=== PATIENT | male | born 1955 | race Caucasian/White ===

== ENCOUNTER 2018-01-01 07:25 | Observation (INO) | payer OTHER ==
[~2018-01-01] VITALS: Ht 177.8 cm; Wt 100.7 kg
--- NOTE | ~2018-01-01 | H ---
[address] [address] HISTORY AND PHYSICAL Name: LORENA GOULD Room: [address] Evette Chaudhary#: [id number] Admission: 01/01/18 Attend Phys: Michael Godoy MD, Discharge: 01/02/18 Date of : 51 Report #: [id number] THIS REPORT FOR: //name// Please refer to the History and Physical performed in the physician's office. By: [facility]5Medical Records Staff JASON /ANGELO
[~2018-01-01 07:25] MED LIST: ASPIR-TRIN325 MG PO; COREG6.25 MG PO; COZAAR 25 MG TA25 M1 PO; COZAAR 25 MG TA25 M2 PO; ETODOLAC 400 M400 M1 PO; ETODOLAC200 MG; FLOMAX0.4 MG PO; LANTUS100 UNIT/M SUBQ; LIPITOR 20 MG T20 M1 PO; METFORMIN HCL500 MG PO; MOBIC15 MG PO; NITROGLYCERIN0.4 MG SUBLING; PLAVIX 75 MG TA75 M1 PO; PRINIVIL5 MG PO; RANEXA500 MG PO; SIMVASTATIN40 MG PO; ZOCOR 10 MG TAB10 MG
[2018-01-01 08:05] LABS: HEMATOCRIT 45.3 % (42.0-52.0); HEMOGLOBIN 15.2 gm/dL (14.0-18.0); MCH 31.4 pg (26.0-34.0); MCHC 33.6 g/dL (28.0-37.0); MCV 93.4 fL (80.0-100.0); MPV 10.5 fl. (7.2-11.1); RBC 4.86 mil/uL (4.50-6.00); RDW-CV 13.2 % (10.5-14.5); WBC 5.9 thou/uL (4.0-11.0)
[2018-01-01 08:09] VITALS: BP 161/80
[2018-01-01 08:16] LABS: APTT 25.7 Seconds (25.0-31.3); INR 1.2; PROTIME 11.3 Seconds (9.20-11.50)
[2018-01-01 08:17] LABS: ANION GAP 6 mmol/L (7-16); BUN 18 mg/dL (7-18); CALCIUM 8.4 mg/dL (8.5-10.1); CHLORIDE 101 mmol/L (98-107); CO2 30 mmol/L (21-32); CREATININE 0.9 mg/dL (0.6-1.3); GLUCOSE 194 mg/dL (70-99); POTASSIUM 3.9 mmol/L (3.5-5.1); SODIUM 137 mmol/L (136-145)
[2018-01-01 08:21] LABS: ALBUMIN 3.8 g/dL (3.4-5.0); ALKALINE PHOSPHATASE 65 U/L (46-116); CHOLESTEROL 185 mg/dL (<200); HDL CHOLESTEROL 42 mg/dL (>40); LDL CHOLESTEROL 114 mg/dL (<100); SGOT 19 U/L (15-37); SGPT 22 U/L (30-65); TC:HDL 4.4 Ratio (Not establshd); TRIGLYCERIDE 147 mg/dL (<150); VLDL 29 mg/dL (<40)
[2018-01-01 08:23] LABS: SERUM ASSESSMENT Clear
[2018-01-01 11:30] VITALS: BP 165/85
--- NOTE | 2018-01-01 15:57 | EKG ---
[place] [address] ELECTROCARDIOGRAM REPORT Name: LORENA GOULD Room: [address] M.R.#: [id number] Admission: 01/01/18 Attend Phys: Michael Godoy MD, Discharge: Date of : 51 Report #: [id number] THIS REPORT FOR: //name// [facility] Test Date: 2018-01-01 Test Time: 08:41:26 Pat Name: LORENA GOULD Department: Room: [facility] Gender: M Special Events Manager: : 1955 Requested By: Michael Godoy Order Number: [id number] Elías MD: Michael Godoy Measurements Intervals [place] Rate: 55 P: 30 MD: 160 QRS: 26 QRSD: 92 T: 39 QT: 450 QTc: 431 Interpretive Statements Sinus rhythm Borderline low voltage, extremity leads Abnormal R-wave progression, early transition Baseline wander in lead(s) I,II,aVR,V5 Electronically Signed On 01-01-2018 15:56:59 CDT by Michael Godoy [email or web address] <ELECTRONICALLY SIGNED> By: Michael Godoy MD, [facility] 01/01/18 1556 0841 0841 Michael Godoy MD, [facility] /EPI
--- NOTE | 2018-01-01 15:58 | EKG ---
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
[2018-01-01 16:39] VITALS: BP 116/65
[2018-01-01 16:42] VITALS: BP 116/65
[2018-01-01 19:25] VITALS: BP 159/83
[2018-01-02] VITALS: BP 123/61
[2018-01-02 04:00] VITALS: BP 167/73
[2018-01-02 04:53] LABS: HEMATOCRIT 40.9 % (42.0-52.0); HEMOGLOBIN 13.9 gm/dL (14.0-18.0); MCH 31.7 pg (26.0-34.0); MCV 93.1 fL (80.0-100.0); MPV 12.1 fl. (7.2-11.1); RBC 4.39 mil/uL (4.50-6.00); RDW-CV 13.5 % (10.5-14.5); WBC 5.7 thou/uL (4.0-11.0)
[2018-01-02 05:19] LABS: ALBUMIN 3.2 g/dL (3.4-5.0); ALKALINE PHOSPHATASE 59 U/L (46-116); ANION GAP 4 mmol/L (7-16); BUN 15 mg/dL (7-18); CALCIUM 8.2 mg/dL (8.5-10.1); CHLORIDE 105 mmol/L (98-107); CO2 30 mmol/L (21-32); CREATININE 0.9 mg/dL (0.6-1.3); GLUCOSE 190 mg/dL (70-99); POTASSIUM 4.4 mmol/L (3.5-5.1); SGOT 13 U/L (15-37); SGPT 18 U/L (30-65); SODIUM 139 mmol/L (136-145); TOTAL BILIRUBIN 0.7 mg/dL (<0.1-1.0); TOTAL PROTEIN 6.6 g/dL (6.4-8.2); TROPONIN-I LEVEL <0.06 ng/mL (<0.06)
[2018-01-02 10:00] VITALS: BP 116/65
[2018-01-02] MEDS ORDERED: PRASUGREL HCL10 MG PO (10:47)
[2018-01-02 10:48] VITALS: BP 116/65
[2018-01-02] MEDS ORDERED: ASPIR 8181 MG PO (11:07)
--- NOTE | 2018-01-02 14:45 | EKG ---
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1955 Requested By: Michael Godoy Order Number: [id number] Elías MD: Michael Godoy Measurements Intervals [place] Rate: 52 P: 26 AL: 165 QRS: 20 QRSD: 95 T: 42 QT: 473 QTc: 440 Interpretive Statements Sinus rhythm Borderline low voltage, extremity leads Abnormal R-wave progression, early transition Baseline wander in lead(s) II,III,aVR,aVF Electronically Signed On 01-02-2018 14:44:48 CDT by Michael Godoy [email or web address] <ELECTRONICALLY SIGNED> By: Michael Godoy MD, [facility] 01/02/18 1444 0835 0835 Michael Godoy MD, [facility] /EPI
--- NOTE | 2018-01-02 15:37 | D ---
[address] [address] DISCHARGE SUMMARY Name: LORENA GOULD Room: [address] Evette Chaudhary#: [id number] Admission: 01/01/18 Attend Phys: Michael Godoy MD, Discharge: 01/02/18 Date of : 51 Report #: [id number] THIS REPORT FOR: //name// CC: Aiden Godoy DATE OF SERVICE: 01/02/2018 FINAL DISCHARGE DIAGNOSES: 1. Abnormal nuclear stress test. 2. Angina. 3. Coronary artery disease. 4. Status post percutaneous coronary intervention to the left anterior descending and circumflex on 01/01/2018. 5. Hypertension. 6. Type 2 diabetes. 7. Hyperlipoproteinemia. 8. Psoriasis. PROCEDURES: On01/02/2018 - left heart catheterization, left ventriculography, selective coronary arteriography and percutaneous coronary intervention with angioplasty of the mid circumflex and third marginal branch, with stenting of the proximal posterior descending branch and stenting of the mid and distal LAD. HOSPITAL COURSE: The patient is a very pleasant 62-year-old male with known coronary artery disease and prior LAD stenting. Approximately 3-4 weeks ago, he had a protracted episode of chest pressure with radiation through to the back. This lasted for over greater than 1 hour. Since then, he has noted some dyspnea and vague discomfort. Stress test revealed an inferior scar with kristin-infarction ischemia. He has underlying hypertension, diabetes and hyperlipidemia. In this context, I performed cardiac catheterization on 01/01/2018. That study demonstrated 75% mid circumflex stenosis with total distal occlusion with 90% stenosis in the takeoff of the third marginal branch and 90% stenosis of the takeoff of the posterior descending branch. He had 80% mid LAD stenosis with 90% distal LAD narrowing. I performed angioplasty on the mid circumflex and the ostium of the third marginal branch, with stenting of the proximal portion of the posterior descending branch with 0% residual narrowing at that site. I stented the mid LAD with 2 Integrity Oleg Medtronic stents and the distal LAD with a single 2.0 x 12 mm Integrity Oleg drug-eluting stent with 0% residual narrowing at both sites following stent deployment. The patient did well post-procedurally. There was no hematoma at the right femoral site. He ambulated in [place] [address] DISCHARGE SUMMARY Name: LORENA GOULD [address]#: [id number] Admission: 01/01/18 Attend Phys: Michael Godoy MD, Discharge: 01/02/18 Date of : 51 Report #: [id number] Laboratory on 01/02/2018 revealed a sodium 139, potassium 4.4, BUN 15 and creatinine 0.9. Hemoglobin 13.9, white blood cell count 5700 with 92,000 platelets. Troponin was less than 0.06. DISCHARGE MEDICATIONS: He was discharged to home on the following medications: Aspirin 81 mg daily; carvedilol 6.25 mg b.i.d.; Lantus insulin 50 units subcutaneous at bedtime, to be resumed on 01/04/2018; losartan 25 mg daily; metformin 500 mg b.i.d., to be resumed on 01/04/2018; prasugrel 10 mg daily with a 60-mg kristin-procedural dose; tamsulosin 0.4 mg daily and p.r.n. sublingual nitroglycerin. FOLLOWUP: He is to return to see us in the office this next week for followup after multi-vessel intervention as noted above. Thus, the patient is discharged to home in stable condition on the aforementioned medications with followup as described above. <ELECTRONICALLY SIGNED> By: Michael Godoy MD, [facility] 01/02/18 1537 0904 [id number] Godoy MD, FAC /nt
--- NOTE | 2018-01-03 10:48 | CARD ---
[address] [address] CARDIAC CATH REPORT Name: LORENA GOULD Room: [address] Evette Chaudhary#: [id number] Admission: 01/01/18 Attend Phys: Michael Godoy MD, Discharge: 01/02/18 Date of : 51 Report #: [id number] THIS REPORT FOR: //name// APPROVED REPORT Study performed: 01/01/2018 07:57:25 Patient Details Patient Status: Out-Patient Room #: The patient is a 62 year-old male Event Personnel Michael Godoy Window Glazier, Brooke Platt RN Assembler, Jelena Francis RTR Monitor, Calvin Hernandez Scrub Procedures Performed Art Access - R femoral artery* Left Heart Cath w/or w/o Coronaries LHC PTCA Addl Branch OM 3 PCIADDL PTCA Addl Branch CIRC PCIADDL CHU Place w/wo Plasty Single LAD CHU Place w/wo Plasty Single LAD CHU Place w/wo Plasty Single CIRC Indication Unstable angina , Positive stress test Risk Factors Hypercholesterolemia, Hypertension, Diabetes Previous Procedures/Diagnoses Previous PCI Admission/Lab Medications/Medications given during procedure Aspirin, Platelet Aff. Inhib., Angiomax IV 15 ml, Angiomax Drip IV 735 ml per hr, Aspirin PO 162 mg, Effient PO 60 mg Procedure Narrative The patient was brought electively to the Cardiac Catheterization Laboratory and was prepped and draped in a sterile manner. The right femoral was infiltrated with 2% Lidocaine subcutaneous anesthesia. A [place] 6 FR sheath was inserted into the right femoral artery. Coronary angiography was performed using coronary diagnostic catheters. The right coronary system was accessed and visualized with a Diagnostic 6Fr JR4 catheter. The left coronary system was accessed and visualized with a Diagnostic 6Fr JL4 catheter. The left ventricle was accessed and visualized with a Diagnostic 6Fr angled pigtail catheter. Left ventricular/Aortic [place] [address] CARDIAC CATH REPORT Name: LORENA GOULD Room: [address]#: [id number] Admission: 01/01/18 Attend Phys: Michael Godoy MD, Discharge: 01/02/18 Date of : 51 Report #: [id number] catheter pullback. Pre-demployment femoral angiogram was performed . Closure device was deployed with a Fr Angioseal STS 6Fr. Hemostasis was obtained with manual pressure following sheath removal without any complications. The patient tolerated the procedure well and there were no complications associated with the procedure. There was no hematoma. Intraoperative Conscious Sedation Fentanyl 50 mcg Versed 2 mg Fluoro Time: 26.2 minutes Dose: DAP 666704 cGycm2 4010.78 mGy Contrast Type and Amount: Visipaque 615 ml Coronary Angiography The patient's coronary anatomy is left dominant. Diagnostic Cath Left Main 0% narrowing LAD 30% proximal narrowing of 80% mid vessel stenosis and 90% distal LAD stenosis Circumflex Dominant vessel with 80% mid vessel narrowing and 100% distal occlusion; there was 90% stenosis at the takeoff of the posterior descending branch with 60% ostial second marginal and 90% ostial third marginal narrowings Right Coronary Small nondominant vessel with 60% mid vessel narrowing and 90% distal stenosis Left Ventriculography The left ventricle is normal in size with normal contractility. The left ventricular ejection fraction is estimated to be 60%. Left ventricular wall motion abnormalities are present. There is no mitral insufficiency. There is focal mid inferior akinesis Hemodynamics The aortic pressure is 143/62 mmHg with a mean of 86 mmHg. The left ventricular pressure is 138/3 mmHg with a mean of mmHg. The left ventricular end diastolic pressure is 10 mmHg. PCI Technique Lesion Percutaneous coronary intervention was performed on the third obtuse marginal branch segment. The lesion stenosis prior to intervention was 90% with PIYUSH 3 flow. A 6F XB LAD 3.5 Guide Catheter was used to engage the ostium. A ProwaterFlex 180CM Interventional Guidewire was used [place] [address] CARDIAC CATH REPORT Name: LORENA GOULD Room: [address] Jet#: [id number] Admission: 01/01/18 Attend Phys: Michael Godoy MD, Discharge: 01/02/18 Date of : 51 Report #: [id number] BALLOON DILATION A Balloon catheter Mini Trek RX 1.5 X 12 was inserted and inflated up to 12.00atm for 9seconds. Additional Inflation: 14.00atm for 9seconds. Additional Inflation: 14.00atm for 9seconds. Final angiography reveals 10 % stenosis with PIYUSH 3 flow. PCI Technique Lesion 2 Percutaneous Coronary Intervention was performed on the mid circumflex artery segment. The lesion stenosis prior to intervention was 80% with PIYUSH 3 flow. A 6F XB LAD 3.5 Guide Catheter was used to engage the ostium. A ProwaterFlex 180CM Interventional Guidewire was used to cross the lesion. Balloon Dilation A Balloon catheter NC Trek RX 2.75 X 12 was inserted and inflated up to 16.00atm for 16seconds. Additional Inflation: 17.00atm for 10seconds. Additional Inflation: 16.00atm for 8seconds. Final angiography reveals 20 % stenosis with PIYUSH 3 flow. PCI Technique Lesion 3 Percutaneous coronary intervention was performed on the proximal posterior descending branch. A 6F XB LAD 3.5 Guide Catheter was used to engage the ostium. A ProwaterFlex 180CM Interventional Guidewire was used to cross the lesion. Balloon Dilation A Balloon catheter Xience Alpine RX 2.25X08 was inserted and inflated up to 10.00atm for 22seconds. Additional Inflation: 12.00atm for 11seconds. Stent Deployment A drug-eluting stent Xience Alpine RX 2.25X08 was inserted and inflated up to 10.00atm for 8seconds. Additional Inflation: 12.00atm for 5seconds. Additional Inflation: 12.00atm for 8seconds. Final angiography reveals 0 % stenosis with PIYUSH 3 flow. PCI Technique Lesion 4 Percutaneous Coronary Intervention was performed on the distal left anterior descending artery segment. A 6F XB LAD 3.5 Guide Catheter was used to engage the ostium. A ProwaterFlex 180CM Interventional Guidewire was used to cross the lesion. Balloon Dilation [address] [address] CARDIAC CATH REPORT Name: LORENA GOULD Room: [address] Evette HerreraRandi#: [id number] Admission: 01/01/18 Attend Phys: Michael Godoy MD, Discharge: 01/02/18 Date of : 51 Report #: [id number] A Balloon catheter Mini Trek RX 2.0 X 12 was inserted and inflated up to 8.00atm for 7seconds. Additional Inflation: 8.00atm for 8seconds. Additional Inflation: 10.00atm for 7seconds. Stent Deployment A stent Oleg RX Stent 2.0X12mm was inserted and inflated up to 8.00atm for 8seconds. Additional Inflation: 10.00atm for 5seconds. Final angiography reveals 10 % stenosis with PIYUSH 3 flow. PCI Technique Lesion 5 Percutaneous Coronary Intervention was performed on the mid left anterior descending artery segment. The lesion stenosis prior to intervention was 80% with PIYUSH 3 flow. A 6F XB LAD 3.5 Guide Catheter was used to engage the ostium. A ProwaterFlex 180CM Interventional Guidewire was used to cross the lesion. Stent Deployment A stent [place] RX Stent 2.0X15mm,2.5x12 oleg was inserted and inflated up to 14.00atm for 9seconds. Additional Inflation: 17.00atm for 10seconds. Additional Inflation: 17.00atm for 8seconds. Final angiography reveals 0 % stenosis with PIYUSH 3 flow. PCI Technique Lesion Percutaneous coronary intervention was performed on the mid left anterior descending artery segment. A 6F XB LAD 3.5 Guide Catheter was used to engage the ostium. A ProwaterFlex 180CM Interventional Guidewire was used to cross the lesion. STENT DEPLOYMENT A stent Oleg RX Stent 2.5X12mm was inserted and inflated up to 10:00atm for 8seconds. Additional Inflation: 12:00atm for 7seconds. POST STENT DEPLOYMENT BALLOON DILATION A Balloon catheter NC Trek RX 2.25x12 was inserted and inflated up to 16:00atm for 9seconds. Additional Inflation: 20:00atm for 9seconds. Additional Inflation: 15:00atm for 7seconds. Conclusion #1 significant multivessel coronary artery disease characterized by the following: A 30% proximal with 80% mid and 90% [place] [address] CARDIAC CATH REPORT Name: LORENA GOULD Room: [address] Evette Chaudhary#: [id number] Admission: 01/01/18 Attend Phys: Michael Godoy MD, Discharge: 01/02/18 Date of : 51 Report #: [id number] B dominant circumflex with 80% mid vessel stenosis and 100% distal occlusion; there was 90% stenosis of the ostium of the posterior descending branch with 60% ostial second marginal and 90% ostial third marginal stenosis C nondominant right coronary artery with 60% mid and 90% distal narrowing #2 normal left-sided hemodynamics study #3 normal global left ventricular systolic function, estimate ejection fraction being 60% with focal mid inferior akinesis #4 successful percutaneous coronary angioplasty at the site of 90% ostial third marginal narrowing with 10% residual narrowing #5 successful percutaneous transluminal coronary angioplasty at the site of 80% mid circumflex stenosis with 20% residual narrowing #6 successful percutaneous coronary intervention with deployment of drug-eluting stent at site of 90% ostial posterior descending narrowing with 0% residual narrowing #7 successful percutaneous coronary intervention with deployment of drug-eluting stent at site of 90% distal LAD stenosis with 10% residual narrowing #8 successful percutaneous coronary intervention with deployment of sequential drug-eluting stents at the site of 80% mid LAD stenosis with 0% residual narrowing and PIYUSH-3 flow the distal vessel Recommendations Cardiac Risk Reduction Program Aggressive Medical Therapy Medications Administered Aspirin (any) Prasugrel Diagnostic Cath Approved by: Michael Godoy MD Date/Time: 01/03/2018 10:42:09 <ELECTRONICALLY SIGNED> By: Michael Godoy MD, [facility] 01/03/18 1048 1048 1048Michael Godoy MD, FAC /INF
== END 2018-01-02 11:45 | disposition home or self-care (01) ==
LOC: M.CL 07:25 → M.2W 11:14 → M.TBA-CV 11:14 → M.2W 11:36
PROVIDERS: ADMIT Internal Medicine
DX: I25.119 Atherosclerotic heart disease of native coronary artery with unspecified angina pectoris (principal); I10 Essential (primary) hypertension; E11.9 Type 2 diabetes mellitus without complications; E78.5 Hyperlipidemia, unspecified; L40.9 Psoriasis, unspecified; R94.39 Abnormal result of other cardiovascular function study

== ENCOUNTER 2018-02-19 07:52 | Observation (INO) | payer OTHER ==
[~2018-02-19] VITALS: Ht 177.8 cm; Wt 107.1 kg
[2018-02-19] VITALS (10 sets, daily range): BP systolic 105–173; BP diastolic 61–83
--- NOTE | ~2018-02-19 | H ---
[address] [address] HISTORY AND PHYSICAL Name: LORENA GOULD Room: [address] Evette Chaudhary#: [id number] Admission: 02/19/18 Attend Phys: Michael Gdooy MD, Discharge: 02/20/18 Date of : 51 Report #: [id number] THIS REPORT FOR: //name// Please refer to the History and Physical performed in the physician's office. By: [id number] Records Staff JASON /ANGELO
[~2018-02-19 07:52] MED LIST changes: +ASPIR 8181 MG PO; +PRASUGREL HCL10 MG PO
[2018-02-19 08:34] LABS: HEMATOCRIT 42.6 % (42.0-52.0); HEMOGLOBIN 14.5 gm/dL (14.0-18.0); MCH 31.4 pg (26.0-34.0); MCHC 34.1 g/dL (28.0-37.0); MPV 11.8 fl. (7.2-11.1); RBC 4.63 mil/uL (4.50-6.00); RDW-CV 13.2 % (10.5-14.5); WBC 5.4 thou/uL (4.0-11.0)
[2018-02-19 08:49] LABS: ANION GAP 5 mmol/L (7-16); BUN 22 mg/dL (7-18); CALCIUM 8.9 mg/dL (8.5-10.1); CHLORIDE 101 mmol/L (98-107); CO2 29 mmol/L (21-32); GLUCOSE 205 mg/dL (70-99); POTASSIUM 4.2 mmol/L (3.5-5.1); SODIUM 135 mmol/L (136-145)
[2018-02-19 08:54] LABS: ALBUMIN 3.8 g/dL (3.4-5.0); ALKALINE PHOSPHATASE 66 U/L (46-116); SGOT 25 U/L (15-37); SGPT 22 U/L (30-65); TOTAL BILIRUBIN 0.8 mg/dL (<0.1-1.0); TOTAL PROTEIN 8.1 g/dL (6.4-8.2)
[2018-02-19 09:04] LABS: APTT 25.6 Seconds (25.0-31.3); INR 1.1; PROTIME 11.1 Seconds (9.20-11.50)
[2018-02-19] MEDS ORDERED: NOVOLIN R100 UNIT/3 SUBQ (13:28)
[2018-02-19] MEDS ORDERED: ETODOLAC 400 M400 M1 PO (13:29)
--- NOTE | 2018-02-19 14:00 | EKG ---
[place] [address] ELECTROCARDIOGRAM REPORT Name: LORENA GOULD Room: [address] M.R.#: [id number] Admission: 02/19/18 Attend Phys: Michael Godoy MD, Discharge: Date of : 51 Report #: [id number] THIS REPORT FOR: //name// [facility] Test Date: 2018-02-19 Test Time: 09:19:11 Pat Name: LORENA CALDERONAREZ Department: Room: [facility] Gender: M E Learning Specialist: : 1955 Requested By: Michael Godoy Order Number: [id number] Reading MD: Michael Godoy Measurements Intervals [place] Rate: 60 P: 4 NM: 150 QRS: 17 QRSD: 95 T: 39 QT: 440 QTc: 440 Interpretive Statements Sinus rhythm Borderline low voltage, extremity leads Minimal ST elevation, anterior leads, normal variant Baseline wander in lead(s) V1,V2 Compared to ECG 01/02/2018 08:35:31 no significant change Electronically Signed On 02-19-2018 14:00:44 CDT by Michael Godoy [email or web address] <ELECTRONICALLY SIGNED> By: Michael Godoy MD, FACC 02/19/18 1400 8 8 Michael Godoy MD, FAC /EPI
--- NOTE | 2018-02-19 14:03 | EKG ---
[place] [address] ELECTROCARDIOGRAM REPORT Name: LORENA GOULD Room: [address] M.R.#: [id number] Admission: 02/19/18 Attend Phys: Michael Godoy MD, Discharge: Date of : 51 Report #: [id number] THIS REPORT FOR: //name// [facility] Test Date: 2018-02-19 Test Time: 13:38:20 Pat Name: LORENA GOULD Department: Room: [facility] Gender: M Finish Filer: : 1955 Requested By: Michael Godoy Order Number: [id number] Elías MD: Michael Godoy Measurements Intervals [place] Rate: 61 P: 63 [place]: 157 QRS: 31 QRSD: 96 T: 54 QT: 460 QTc: 464 Interpretive Statements Sinus rhythm Low voltage, extremity leads Abnormal R-wave progression, early transition Compared to ECG 01/02/2018 08:35:31 No significant changes Electronically Signed On 02-19-2018 14:03:32 CDT by Michael Godoy [email or web address] <ELECTRONICALLY SIGNED> By: Michael Godoy MD, FACC 02/19/18 1403 1338 1338 Michael Godoy MD, [facility] /EPI
[2018-02-19 17:03] LABS: CHOLESTEROL 178 mg/dL (<200); HDL CHOLESTEROL 46 mg/dL (>40); LDL CHOLESTEROL 113 mg/dL (<100); SERUM ASSESSMENT Clear; TC:HDL 3.9 Ratio (Not establshd); TRIGLYCERIDE 99 mg/dL (<150); VLDL 20 mg/dL (<40)
--- NOTE | 2018-02-19 18:44 | NUR ---
RECEVIED REPORT FROM ECHO IN AUTOMOBILE RENTAL REPRESENTATIVE. PT TRANSFERED TO TELE FLOOR AROUND 1155. PT ALERT AND ORIENTED X4, VSS, O2 SAT >90% ON RA. POST CATH VITALS COMPLETED CHARTED. ADMISSION HISTORY, ASSESSMENT, AND VITALS COMPLETED CHARTED. PT'S SON, BRANDY, ASSISTED WITH ADMISSION HISTORY. PT PRIMARILY SPEAKS [place]. RIGHT GROIN CATH SITE CDI, NO HEMATOMA, NON-TENDER. NELSON DC'D PER ORDER FROM DR SWAN. PT UP WITH STANDBY ASSIST TO THE BATHROOM THIS EVENING TO VOID AND HAVE BM. PT EATING AND DRINKING WITHOUT ISSUE. PT REPORTS DISCOMFORT IN PENIS FROM CATHETER - DENIES NEED FOR MEDICATION FOR PAIN. AT BEDSIDE, PLANS TO STAY THE NIGHT. COT PROVIDED. PT CURRENTLY RESTING IN BED WATCHING TV. CALL LIGHT IS WITHIN REACH. HOURLY ROUNDING PERFORMED. FALL PRECAUTIONS IN PLACE. WCTM FOR DURATION OF SHIFT.
[2018-02-20] VITALS: BP 147/72
--- NOTE | 2018-02-20 03:37 | NUR ---
ASSUMED PT CARE AT 1930. NURSING ASSESSMENT COMPLETED AT START OF SHIFT. PT VOICE NO CONCERNS THIS SHIFT, DENIES PAIN. SOLE CUTTER IN PLACE, TRACING SINUS RHYTHM. RIGHT GROIN DRESSING CLEAN,DRY, INTACT. HOURLY ROUNDING COMPLETED. CALL LIGHT WITHIN REACH.
[2018-02-20 04:00] VITALS: BP 124/65; BP 147/70
[2018-02-20 04:22] LABS: HEMATOCRIT 40.3 % (42.0-52.0); HEMOGLOBIN 13.6 gm/dL (14.0-18.0); MCH 31.4 pg (26.0-34.0); MCHC 33.7 g/dL (28.0-37.0); MCV 93.2 fL (80.0-100.0); RBC 4.32 mil/uL (4.50-6.00); RDW-CV 13.4 % (10.5-14.5)
[2018-02-20 04:47] LABS: ALBUMIN 3.4 g/dL (3.4-5.0); ALKALINE PHOSPHATASE 61 U/L (46-116); ANION GAP 5 mmol/L (7-16); BUN 14 mg/dL (7-18); CALCIUM 8.4 mg/dL (8.5-10.1); CHLORIDE 104 mmol/L (98-107); CO2 29 mmol/L (21-32); CREATININE 0.9 mg/dL (0.6-1.3); GLUCOSE 159 mg/dL (70-99); POTASSIUM 3.7 mmol/L (3.5-5.1); SGOT 15 U/L (15-37); SGPT 19 U/L (30-65); SODIUM 138 mmol/L (136-145); TOTAL BILIRUBIN 0.5 mg/dL (<0.1-1.0); TOTAL PROTEIN 6.8 g/dL (6.4-8.2); TROPONIN-I LEVEL <0.06 ng/mL (<0.06)
--- NOTE | 2018-02-20 07:45 | NUR ---
ASSUMED CARE OF PT ASSESSED AND DOCUMENTED. PT IS ON CARDIAC MONITER TRACING SR HR 75. PT IS A&O WITH NO C/O PAIN. HE IS ON ROOM AIR AND IS AFEBRILE. PT DRSG ON R GROIN REMAINS CLEAN DRY AND INTACT. BED IS IN LOW POSITION CALL LIGHT IS IN REACH. WM.
[2018-02-20 08:00] VITALS: BP 153/79
[2018-02-20 11:23] VITALS: BP 153/79
[2018-02-20 11:58] VITALS: BP 153/79
[2018-02-20 12:36] VITALS: BP 153/79
--- NOTE | 2018-02-20 12:50 | NUR ---
PT D/C'D TO HOME. IV AND CARDIAC MONITER D/C'D. EDUCATION GIVEN RE FOLLOW-UPS, MEDICATIONS, AND DRS ORDERS. ALL BELONGINGS PACKED UP AND LEFT WITH PT ACCOMPANIED BY STAFF AND PTS FAMILY.
--- NOTE | 2018-02-20 13:11 | CARD ---
[address] [address] CARDIAC CATH REPORT Name: LORENA GOULD Room: [address] Evette Chaudhary#: [id number] Admission: 02/19/18 Attend Phys: Michael Godoy MD, Discharge: 02/20/18 Date of : 51 Report #: [id number] THIS REPORT FOR: //name// APPROVED REPORT Study performed: 02/19/2018 09:07:31 Patient Details Patient Status: Out-Patient Room #: The patient is a 63 year-old male Event Personnel Michael Godoy Hired Help, Brooke Platt RN Elementary Education Teacher, Jelena Francis RTR Monitor, Calvin Hernandez Scrub Procedures Performed Art Access - R femoral artery* Left Heart Cath w/or w/o Coronaries LHC PTCA Single Vessel CIRC PCISINGLE PTCA Single Vessel OM PCISINGLE Hemostasis w/ Angioseal Indication Unstable angina Risk Factors Hypercholesterolemia, Hypertension, Diabetes Previous Procedures/Diagnoses Previous PCI Admission/Lab Medications/Medications given during procedure Aspirin, Platelet Aff. Inhib., Angiomax bolus and infusion Procedure Narrative The patient was brought electively to the Cardiac Catheterization Laboratory and was prepped and draped in a sterile manner. The right femoral was infiltrated with 2% Lidocaine subcutaneous anesthesia. A Hastings 6 FR sheath was inserted into the right femoral artery. Coronary angiography was performed using coronary diagnostic catheters. The right coronary system was accessed and visualized with a Diagnostic 6Fr JR 4 catheter. The left coronary system was accessed and visualized with a Diagnostic 6Fr JL4 catheter. The left ventricle was accessed and visualized with a Diagnostic 6Fr straight pightail catheter. Left ventricular/Aortic Valve gradient assessed via catheter pullback. Closure device was deployed with a Fr Angioseal STS 6Fr. The patient tolerated the procedure well [place] [address] CARDIAC CATH REPORT Name: LORENA GOULD [address] [id number] Admission: 02/19/18 Attend Phys: Michael Godoy MD, Discharge: 02/20/18 Date of : 51 Report #: [id number] complications associated with the procedure. There was no hematoma. Intraoperative Conscious Sedation Sedation start time: 09:56 Case end Time: 10:56 Fentanyl 50 mcg Versed 2 mg Fluoro Time: 20.3 minutes Dose: DAP [id number] cGycm2 2471 mGy Contrast Type and Amount: Visipaque 250 ml Diagnostic Cath Left Main 0% narrowing LAD 4% proximal LAD narrowing with widely patent mid and distal stents Circumflex Dominant vessel with 75% mid vessel narrowing and 80% stenosis of the takeoff of the third marginal branch with 100% distal circumflex occlusion Right Coronary Nondominant vessel with 40% mid vessel narrowing Left Ventriculography The left ventricle is normal in size with normal contractility. The left ventricular ejection fraction is estimated to be 60%. Left ventricular wall motion abnormalities are present. There is no mitral insufficiency. There is mild mid inferior hypokinesis noted Hemodynamics The aortic pressure is 151/52 mmHg with a mean of 76 mmHg. The left ventricular pressure is 132/-3 mmHg with a mean of mmHg. The left ventricular end diastolic pressure is 3 mmHg. There was no gradient across the aortic valve upon pullback. PCI Technique Lesion Anticoagulation was achieved with Angiomax. Percutaneous coronary intervention was performed on the third obtuse marginal branch segment. The lesion stenosis prior to intervention was 80% with PIYUSH 3 flow. A 6F XB LAD 3.5 Guide Catheter was used to engage the ostium. A BMW 190cm Interventional Guidewire was used to cross the lesion. BALLOON DILATION A Balloon catheter Mini Trek RX 1.5 X 12 was inserted and inflated up to 10.00atm for 11seconds. Additional Inflation: 12.00atm for 9seconds. Additional Inflation: 16.00atm for 11seconds. [place] [address] CARDIAC CATH REPORT Name: LORENA GOULD Room: [address] Evette Chaudhary#: [id number] Admission: 02/19/18 Attend Phys: Michael Godoy MD, Discharge: 02/20/18 Date of : 51 Report #: [id number] 2.0X8 balloon was inserted and inflated for 8:00 erica for 6 seoncds. 6:00 erica for 7 seconds. 8:00 erica for 16 seconds. 10 erica for 18 seconds. Balloon catheter inserted 1.5X12 Trek was inserted and inflated for 16 erica for 7 seconds. 16 erica for 13 seconds. 16 erica for 20 seconds. 16 erica for 17 seoncds. Final angiography reveals 20 % stenosis with PIYUSH 3 flow. PCI Technique Lesion 2 Percutaneous Coronary Intervention was performed on the mid circumflex artery segment. The lesion stenosis prior to intervention was 75% with PIYUSH 3 flow. A 6F XB LAD 3.5 Guide Catheter was used to engage the ostium. A BMW 190cm Interventional Guidewire was used to cross the lesion. Balloon Dilation A Balloon catheter NC Trek RX 2.75 X 12 was inserted and inflated up to 18.00atm for 15seconds. Additional Inflation: 20.00atm for 9seconds. Final angiography reveals 20 % stenosis with PIYUSH 3 flow. Conclusion #1 significant coronary artery disease characterized by the following: A 40% proximal LAD narrowing with widely patent mid and distal LAD stents B dominant circumflex with 75% mid vessel narrowing and total distal occlusion and 80% stenosis of the proximal third marginal branch C nondominant right coronary artery with 40% mid vessel narrowing #2 normal global left ventricular systolic function, estimate ejection fraction being 60% with mild inferior hypokinesis #3 mild systemic systolic hypertension with normal left ventricular end-diastolic pressure at rest #4 successful percutaneous transluminal coronary angioplasty at the sites of 75% mid circumflex and 80% proximal third marginal narrowing with 20% residual narrowing at both sites following final dilatation and PIUYSH-3 flow to the distal circulation [address] [address] CARDIAC CATH REPORT Name: LORENA GOULD Room: [address] Evette Chaudhary#: [id number] Admission: 02/19/18 Attend Phys: Michael Godoy MD, Discharge: 02/20/18 Date of : 51 Report #: [id number] Recommendations Cardiac Risk Reduction Program Aggressive Medical Therapy Medications Administered Aspirin (any) Prasugrel Diagnostic Cath Approved by: Michael Godoy MD Date/Time: 02/20/2018 13:09:40 <ELECTRONICALLY SIGNED> By: Michael Godoy MD, [facility] 02/20/18 1311 10 1311Michael Godoy MD, FACC /INF
--- NOTE | 2018-02-20 18:06 | EKG ---
[place] [address] ELECTROCARDIOGRAM REPORT Name: LORENA GOULD [address]#: [id number] Admission: 02/19/18 Attend Phys: Michael Godoy MD, Discharge: 02/20/18 Date of : 51 Report #: [id number] THIS REPORT FOR: //name// [facility] Test Date: 2018-02-20 Test Time: 04:00:58 Pat Name: LORENA GOULD Department: Room: [facility] Gender: M Sterile Supply Technician: RSHEDNIGHAT : 1955 Requested By: Michael Godoy Order Number: [id number] Reading MD: Josiah Solares Measurements Intervals [place] Rate: 57 P: 30 AL: 150 QRS: 21 QRSD: 99 T: 36 QT: 453 QTc: 441 Interpretive Statements Sinus rhythm Baseline wander in lead(s) II,III,aVL,aVF Compared to ECG 02/19/2018 13:38:20 No significant changes Electronically Signed On 02-20-2018 18:06:36 CDT by Josiah Solares [email or web address] <ELECTRONICALLY SIGNED> By: Josiah Solares MD, FACC 02/20/18 1806 0400 0400 Josiah Solares MD, [facility] /EPI
--- NOTE | 2018-02-21 11:03 | D ---
[address] [address] DISCHARGE SUMMARY Name: LORENA GOULD Room: [address] Evette Chaudhary#: [id number] Admission: 02/19/18 Attend Phys: Michael Goody MD, Discharge: 02/20/18 Date of : 51 Report #: [id number] THIS REPORT FOR: //name// CC: Aiden Godoy DATE OF SERVICE: 02/20/2018 FINAL DISCHARGE DIAGNOSES: 1. Unstable angina. 2. Recently abnormal stress test. 3. Status post prior percutaneous coronary intervention to the left anterior descending and circumflex with angioplasty of the mid circumflex and marginal branch on 02/19/2018. 4. Coronary artery disease. 5. Hypertension. 6. Type 2 diabetes. 7. Hyperlipoproteinemia. 8. Psoriasis. PROCEDURES: 02/19/2018 - left heart catheterization, selective coronary arteriography and angioplasty of the mid circumflex and third marginal branch. The patient is a very pleasant 63-year-old I[place]ian male with complex coronary artery disease and status post prior percutaneous coronary interventions. He recently underwent stenting of the LAD at multiple sites, the posterior descending branch of the right coronary artery with angioplasty of a marginal branch. He presented with recurrent angina and underwent recatheterization on 02/19/2018, which revealed widely patent LAD stents with 30%-40% proximal LAD narrowing. The stent in the posterior descending branch of the circumflex was widely patent and there was a 75% mid circumflex stenosis with 80%-90% stenosis at the origin of third marginal branch. I dilated both sites with 20% residual narrowing at both sites following final dilatation and PIYUSH 3 flow of the distal vessel. The troponin jey inconsequentially to 0.06. Laboratory on 02/19/2018 revealed a troponin of 0.06. Sodium 138, potassium 3.7, BUN 14, creatinine 0.9, hemoglobin 13.6, white blood cell count 6000 with 102,000 platelets. GFR was 85. He ambulated in the hallways without difficulty and there was good hemostasis at the right femoral site of catheterization. He was discharged to home in stable condition on aspirin 81 mg daily, carvedilol 6.25 mg b.i.d., etodolac 400 mg b.i.d., Lantus insulin 40 units subcutaneously at bedtime, regular insulin in varying dose schedule a.c., losartan 25 mg daily, metformin 500 mg b.i.d. to be resumed on 02/21/2018, prasugrel 10 mg daily, [place] [address] DISCHARGE SUMMARY Name: GOULDLORENA H Room: [address] Evette Chaudhary#: [id number] Admission: 02/19/18 Attend Phys: Michael Godoy MD, Discharge: 02/20/18 Date of : 51 Report #: [id number] tamsulosin 0.4 mg daily and p.r.n. sublingual nitroglycerin. I will plan to see the patient in the office in approximately 4 weeks for clinical followup. Thus, the patient is discharged to home in stable condition on the aforementioned medications with followup as described above. The patient discharged from room 209 on 02/20/2018. <ELECTRONICALLY SIGNED> By: Michael Godoy MD, FACC 02/21/18 1103 1031 1857Michael Godoy MD, FACC /nt
== END 2018-02-20 13:06 | disposition home or self-care (01) ==
LOC: M.CL 07:52 → M.TBA-CV 11:16 → M.2W 11:16
PROVIDERS: ADMIT Internal Medicine
DX: I25.110 Atherosclerotic heart disease of native coronary artery with unstable angina pectoris (principal); I10 Essential (primary) hypertension; E11.9 Type 2 diabetes mellitus without complications; E78.5 Hyperlipidemia, unspecified; L40.9 Psoriasis, unspecified

== ENCOUNTER 2019-03-11 08:56 | Observation (INO) | payer OTHER ==
[2019-03-11] VITALS (11 sets, daily range): BP systolic 127–155; BP diastolic 64–75
[~2019-03-11] VITALS: Ht 177.8 cm; Wt 111.6 kg
[~2019-03-11 08:56] MED LIST changes: +NOVOLIN R100 UNIT/3 SUBQ
[2019-03-11] MEDS ORDERED: LEVEMIR FL100 UNIT/2 SUBQ (09:12)
[2019-03-11] MEDS ORDERED: NOVOLOG FL100 UNIT/M SUBQ (09:13)
[2019-03-11] MEDS ORDERED: HUMIRA PEN40 MG/0.4 SUBQ (09:13)
[2019-03-11 09:30] LABS: ABSOLUTE BASOPHILS 0.1 thou/uL (0.0-0.2); ABSOLUTE EOSINOPHILS 0.2 thou/uL (0.0-0.7); ABSOLUTE LYMPHOCYTES 1.5 thou/uL (0.8-5.3); ABSOLUTE MONOCYTES 0.5 thou/uL (0.0-1.2); ABSOLUTE NEUTROPHILS 2.6 thou/uL (1.6-8.1); BASOPHILS 1.4 %; EOSINOPHILS 3.4 %; HEMATOCRIT 43.9 % (42.0-52.0); HEMOGLOBIN 14.8 gm/dL (14.0-18.0); LYMPHOCYTES 31.8 %; MCH 30.7 pg (26.0-34.0); MCHC 33.6 g/dL (28.0-37.0); MCV 91.4 fL (80.0-100.0); MONOCYTES 9.4 %; MPV 11.7 fl. (7.2-11.1); NUCLEATED RBCS 0 /100WBC; PLATELET COUNT* 124 thou/uL (150-400); RDW-CV 13.5 % (10.5-14.5); WBC 4.9 thou/uL (4.0-11.0)
--- NOTE | 2019-03-11 09:37 | NUR ---
WENT INTO ROOM TO GIVE PT ORDERED ASPIRIN AND DAUGHTER STATES PT AND SHE WOULD LIKE DR SWAN TO BE CONSULTED PRIOR TO ASPIRIN ADMINISTRATION. PROVIDER NOTIFIED.
[2019-03-11 09:40] LABS: APTT 25.9 Seconds (25.0-31.3); INR 1.1; PROTIME 11.4 Seconds (9.20-11.50)
[2019-03-11 10:05] LABS: CALCIUM 8.6 mg/dL (8.5-10.1); CREATININE 1.1 mg/dL (0.6-1.3); POTASSIUM 4.5 mmol/L (3.5-5.1)
[2019-03-11 10:19] LABS: ALBUMIN 3.7 g/dL (3.4-5.0); CK-MB MASS 2.2 ng/mL (<0.5-3.6); MAGNESIUM 1.8 mg/dL (1.8-2.4); TOTAL BILIRUBIN 0.7 mg/dL (<0.1-1.0); TOTAL PROTEIN 7.7 g/dL (6.4-8.2)
[2019-03-11 10:34] LABS: LARGE PLATELETS FEW; PLATELET ESTIMATE DECREASED
--- NOTE | 2019-03-11 13:58 | EKG ---
[place] [address] ELECTROCARDIOGRAM REPORT Name: LORENA GOULD Room: [address] [place] .R.#: [id number] Admission: 03/11/19 Attend Phys: Michael Godoy MD, Discharge: Date of : 51 Report #: [id number] THIS REPORT FOR: //name// [facility] ED Test Date: 2019-03-11 Test Time: 09:00:12 Pat Name: LORENA GOULD Department: Room: Gender: Acquisition Specialist: : 1955 Requested By: Ross Bentley Order Number: [id number] MD: Roldan Viera Measurements Intervals [place] Rate: 71 P: 80 RI: 169 QRS: 40 QRSD: 85 T: 139 QT: 388 QTc: 422 Interpretive Statements Sinus rhythm Possible left atrial enlargement Repol abnrm suggests ischemia, anterolateral Inferior Q waves noted Compared to ECG 02/20/2018 04:00:58 Early repolarization now present Possible ischemia now present Electronically Signed On 03-11-2019 13:58:49 HOLDER [employer] by Roldan Viera [email or web address] <ELECTRONICALLY SIGNED> By: Roldan Viera MD, FACC 03/11/19 1358 09 09 Roldan Viera MD, FAC /EPI
--- NOTE | 2019-03-11 14:24 | NUR ---
ADMIT S/P HEART CATH TO 209 PATIENT TO VIA BED TELEPHONE REPORT GIVEN PRIOR TO ARRIVAL FAMILY AT BEDSIDE VITAL SIGNS TAKEN AND STABLE AND PATIENT DENIES PAIN
--- NOTE | 2019-03-11 16:40 | EKG ---
[place] [address] ELECTROCARDIOGRAM REPORT Name: LORENA GOULD Room: [address] M.R.#: [id number] Admission: 03/11/19 Attend Phys: Michael Godoy MD, Discharge: Date of : 51 Report #: [id number] THIS REPORT FOR: //name// [facility] Test Date: 2019-03-11 Test Time: 14:27:26 Pat Name: LORENA GOULD Department: Room: [facility] Gender: M Tire Changer Aircraft: : 1955 Requested By: Michael Godoy Order Number: [id number] Elías MD: Roldan Viera Measurements Intervals [place] Rate: 51 P: 75 NV: 177 QRS: 38 QRSD: 80 T: 129 QT: 460 QTc: 424 Interpretive Statements Sinus rhythm Repol abnrm suggests ischemia, anterolateral Minimal ST elevation, anterior leads Compared to ECG 03/11/2019 09:00:12 ST (T wave) deviation now present Inferior Q waves no longer present Q waves no longer present Possible ischemia still present Electronically Signed On 03-11-2019 16:40:14 NATIONAL FACILITIES MANAGER by Roldan Viera [email or web address] <ELECTRONICALLY SIGNED> By: Roldan Viera MD, FACC 03/11/19 1640 1427 1427 Roldan Viera MD, FAC /EPI
--- NOTE | 2019-03-11 17:00 | H ---
[place] [address] HISTORY AND PHYSICAL Name: LORENA GOULD Room: [address] Evette Chaudhary#: [id number] Admission: 03/11/19 Attend Phys: Michael Godoy MD, Discharge: Date of : 51 Report #: [id number] THIS REPORT FOR: //name// CC: MEJIA Bentley Physician staff DATE OF SERVICE: 03/11/2019 The patient will be admitted on 03/11/2019. HISTORY OF PRESENT ILLNESS: The patient is a very pleasant 64-year-old Japanese male with complex coronary artery disease, status post prior myocardial infarction and prior stenting of the LAD and circumflex. 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 He has an episode essentially every day, which remits with rest and at times required sublingual nitrates. The frequency has increased over the last 1-2 weeks. The patient has underlying hypertension, diabetes and weight excess. MEDICATIONS: Include aspirin 81 mg daily, carvedilol 6.25 mg b.i.d., NovoLog insulin with varying doses subcutaneously 3 times a day, Levemir insulin 20 units subcutaneously daily, losartan 25 mg daily, metformin 500 mg b.i.d., p.r.n. sublingual nitroglycerin, omeprazole 40 mg daily and Flomax 0.4 mg daily. PAST MEDICAL HISTORY: Remarkable for diabetes, weight excess, hypertension, mixed hyperlipidemia. SOCIAL HISTORY: The patient is . He is a nonsmoker. REVIEW OF SYSTEMS: Remarkable for the following: CARDIAC: He describes episodes of chest pain compatible with angina, which have increased in frequency. GENERAL: There has been moderate chronic weight excess. PHYSICAL EXAMINATION: GENERAL: Demonstrates a mildly distressed middle-aged Japanese male. VITAL SIGNS: Blood pressure 140/70, pulse rate is 68, respirations are 18 per minute. NECK: Jugular venous pressure is normal. CHEST: Clear. CARDIAC: Reveals normal first and second heart sounds with a question of S4 gallop. ABDOMEN: Mildly obese. EXTREMITIES: Without edema with intact femoral, [place] [address] HISTORY AND PHYSICAL Name: LORENA GOULD Room: [address]#: [id number] Admission: 03/11/19 Attend Phys: Michael Godoy MD, Discharge: Date of : 51 Report #: [id number] EKG reveals anterolateral ST-T changes compatible with ischemia. IMPRESSION: 1. Unstable angina. 2. Coronary artery disease. 3. Status post prior myocardial infarction. 4. Status post prior stenting. 5. Type 2 diabetes. 6. Hypertension. 7. Weight excess. RECOMMENDATIONS: Given the aforementioned clinical scenario compatible with unstable angina, I would recommend proceeding with cardiac catheterization to document current coronary anatomy and prospects for subsequent therapeutic modification. Critical care time is 35 minutes from 10:40 to 11:15 on 03/11/2019. <ELECTRONICALLY SIGNED> By: Michael Godoy MD, FACC 03/11/19 1700 1119 1134Michael Godoy MD, FACC /nt
[2019-03-12] VITALS: BP 130/72
[2019-03-12 04:00] VITALS: BP 144/77
[2019-03-12 04:32] LABS: HEMATOCRIT 43.9 % (42.0-52.0); HEMOGLOBIN 14.8 gm/dL (14.0-18.0); MCH 30.6 pg (26.0-34.0); MCHC 33.7 g/dL (28.0-37.0); MCV 90.7 fL (80.0-100.0); MPV 11.1 fl. (7.2-11.1); RBC 4.84 mil/uL (4.50-6.00); RDW-CV 13.8 % (10.5-14.5); WBC 6.2 thou/uL (4.0-11.0)
[2019-03-12 04:50] LABS: ALBUMIN 3.3 g/dL (3.4-5.0); ALKALINE PHOSPHATASE 60 U/L (46-116); ANION GAP 7 mmol/L (7-16); BUN 16 mg/dL (7-18); CALCIUM 8.8 mg/dL (8.5-10.1); CHLORIDE 103 mmol/L (98-107); CHOLESTEROL 172 mg/dL (<200); CO2 29 mmol/L (21-32); CREATININE 0.9 mg/dL (0.6-1.3); GLUCOSE 139 mg/dL (70-99); HDL CHOLESTEROL 32 mg/dL (>40); LDL CHOLESTEROL 116 mg/dL (<100); POTASSIUM 3.9 mmol/L (3.5-5.1); SGOT 21 U/L (15-37); SGPT 23 U/L (30-65); SODIUM 139 mmol/L (136-145); TC:HDL 5.4 Ratio (Not establshd); TOTAL BILIRUBIN 0.7 mg/dL (<0.1-1.0); TOTAL PROTEIN 7.3 g/dL (6.4-8.2); TRIGLYCERIDE 123 mg/dL (<150); TROPONIN-I LEVEL 0.08 ng/mL (<0.06); VLDL 25 mg/dL (<40)
[2019-03-12 04:54] LABS: SERUM ASSESSMENT CLEAR
--- NOTE | 2019-03-12 06:30 | NUR ---
INITAL ASSESMENT COMPLETED AT 194. PT OFF BEDREST AT THAT TIME. NELSON CATHETR REMOVED AT THAT TIME. GROIN SITE SOFT, NO BLEEDING, BRUISING OR HEMATOMA. PT INSTRUCTED TO SPLINT GROIN BEFORE COUGHING OR BEARING DOWN. PT INSTRUCTED TO CALL NURSE IF SWELLING OR BLEEDING OCCUR. VITAL SIGNS WITHIN NORMAL LIMITS DURING NIGHT. CALL LIGHT IN REACH, PT USING APPROPRIATELY.
[2019-03-12 07:00] VITALS: BP 141/60
[2019-03-12 07:23] VITALS: BP 136/75
--- NOTE | 2019-03-12 09:18 | NUR ---
INITIAL ASSESSMENT COMPLETED CHARTED. VSS. TRACING SB ON MONITOR. PT DENIES PAIN, SOA, N/V/D. DRESSING TO RIGHT GROIN C/D/I. NO NEW CONCERNS. HOURLY ROUNDING FOR PT SAFETY. CLWR.
[2019-03-12] MEDS ORDERED: LIPITOR 20 MG T20 M1 PO (09:56)
[2019-03-12] MEDS ORDERED: EFFIENT10 MG PO (10:03)
--- NOTE | 2019-03-12 11:32 | CARD ---
[address] [address] CARDIAC CATH REPORT Name: LORENA GOULD Room: [address] Evette Chaudhary#: [id number] Admission: 03/11/19 Attend Phys: Michael Godoy MD, Discharge: 03/12/19 Date of : 51 Report #: [id number] THIS REPORT FOR: //name// APPROVED REPORT Study performed: 03/11/2019 11:15:09 Patient Details Patient Status: ED Room #: The patient is a 64 year-old male Event Personnel Michael Godoy Compensator Worker, Janessa Kendall RN, Meghna Gilbert RTR Monitor, Calvin Hernandez, Natasha Grijalva RTR Monitor Procedures Performed Art Access - R femoral artery Left Heart Cath w/or w/o Coronaries CHU w/Atherectomy Single LAD CHU Place w/wo Plasty Single CIRC CHU Place w/wo Plasty Single Left Main Hemostasis w/ Angioseal Indication Unstable angina Risk Factors Family History, Hypercholesterolemia, Hypertension, Diabetes Previous Procedures/Diagnoses Previous PCI Admission/Lab Medications/Medications given during procedure Angiomax bolus and infusion Procedure Narrative The patient was brought urgently to the Cardiac Catheterization Laboratory and was prepped and draped in a sterile manner. The right femoral was infiltrated with 2% Lidocaine subcutaneous anesthesia. A Ludlow 6 FR sheath was inserted into the right femoral artery. Coronary angiography was performed using coronary diagnostic catheters. The right coronary system was accessed and visualized with a Diagnostic catheter. The left coronary system was accessed and visualized with a Diagnostic catheter. The left ventricle was accessed and visualized with a Diagnostic catheter. Left ventricular/Aortic Valve gradient assessed [place] [address] CARDIAC CATH REPORT Name: LORENA GOULD Room: [address] Evette Chaudhary#: [id number] Admission: 03/11/19 Attend Phys: Michael Godoy MD, Discharge: 03/12/19 Date of : 51 Report #: [id number] Left ventriculogram was performed in WARREN projection. Pre-demployment femoral angiogram was performed . Closure device was deployed with a 6 Fr Angioseal. The patient tolerated the procedure well and there were no complications associated with the procedure. There was no hematoma. Intraoperative Conscious Sedation Fentanyl mcg Dose: 4629 mGy Contrast Type and Amount: Visipaque 630 ml Coronary Angiography The patient's coronary anatomy is left dominant. Diagnostic Cath Left Main 70% distal narrowing LAD 90% proximal stenosis with 80% tandem mid LAD in-stent restenotic lesions and 90% distal LAD narrowing Circumflex 80% proximal circumflex stenosis with total distal circumflex occlusion Right Coronary Small nondominant vessel with 80% proximal narrowing Left Ventriculography The left ventricle is normal in size with contractility. The left ventricular ejection fraction is estimated to be 40%. Left ventricular wall motion abnormalities are present. There is no mitral insufficiency. There is moderate diffuse hypokinesis of left ventricular wall motion Hemodynamics The aortic pressure is 140/70 mmHg with a mean of 82 mmHg. The left ventricular end diastolic pressure is 15 mmHg. There was no gradient across the aortic valve upon pullback. PCI Technique Lesion Anticoagulation was achieved with Angiomax. Percutaneous coronary intervention was performed on the distal left anterior descending artery segment. The lesion stenosis prior to intervention was 90% with PIYUSH 3 flow. A 6 Romansh XB LAD 3.5 Guide Catheter was used to engage the left ostium. A IG: ProwaterFlex 180CM Interventional Guidewire was used to cross the lesion. BALLOON DILATION A Balloon catheter NC Trek RX 2.0 X 12 was [place] [address] CARDIAC CATH REPORT Name: LORENA GOULD [address]: [address]#: [id number] Admission: 03/11/19 Attend Phys: Michael Godoy MD, Discharge: 03/12/19 Date of : 51 Report #: [id number] to 14atm for 15seconds. STENT DEPLOYMENT A drug-eluting stent Somerset RX Stent 2.0X15mm was inserted and inflated up to 12atm for 10seconds. Final angiography reveals 0 % stenosis with PIYUSH 3 flow. PCI Technique Lesion 2 Percutaneous Coronary Intervention was performed on the mid left anterior descending artery segment. The lesion stenosis prior to intervention was 80% with PIYUSH flow. Balloon Dilation A Balloon catheter AngioSculpt PTCA 2.0X10mm was inserted and inflated up to 12atm for 15seconds. Stent Deployment A drug-eluting stent Oleg RX Stent 2.33R67db was inserted and inflated up to 15atm for 15seconds. Final angiography reveals 0 % stenosis with PIYUSH 3 flow. PCI Technique Lesion 3 Percutaneous Coronary Intervention was performed on the proximal LAD. Balloon Dilation A Balloon catheter AngioSculpt PTCA 2.0X10mm was inserted and inflated up to 18atm for 15seconds. Stent Deployment A drug-eluting stent Somerset RX Stent 2.5X12mm was inserted and inflated up to 14atm for 15seconds. Final angiography reveals 0 % stenosis with PIYUSH 3 flow. PCI Technique Lesion 4 Percutaneous Coronary Intervention was performed on the proximal circumflex. Balloon Dilation A Balloon catheter Trek RX 2.5 X 8 was inserted and inflated up to 15atm for 10seconds[place] [address] CARDIAC CATH REPORT Name: LORENA GOULD Room: [address] Evette Chaudhary#: [id number] Admission: 03/11/19 Attend Phys: Michael Godoy MD, Discharge: 03/12/19 Date of : 51 Report #: [id number] A drug-eluting stent Oleg RX Stent 2.75X8mm was inserted and inflated up to 16atm for 10seconds. Final angiography reveals 0 % stenosis with PIYUSH 3 flow. PCI Technique Lesion 5 Percutaneous Coronary Intervention was performed on the distal left main coronary artery. The lesion stenosis prior to intervention was 70% with PIYUSH 3 flow. Balloon Dilation A Balloon catheter NC Trek RX 3.0 X 8 was inserted and inflated up to 16atm for 15seconds. Stent Deployment A drug-eluting stent Oleg RX Stent 3.0X12mm was inserted and inflated up to 15atm for 10seconds. Post Stent Deployment Balloon Dilation A Balloon catheter NC Trek RX 3.5 X 8 was inserted and inflated up to 14atm for 10seconds. Final angiography reveals 10 % stenosis with PIYUSH 3 flow. Comments This is a technically complex intervention by virtue of multivessel stenting and stenting of the unprotected left main coronary artery. Conclusion #1 severe multivessel coronary artery disease characterized by the following: A 70% distal left main coronary artery narrowing B 90% proximal and 80% tandem mid LAD stenosis and 90% distal LAD stenosis C 80% proximal circumflex stenoses with 100% distal occlusion B small nondominant right coronary artery with 80% proximal narrowing #2 moderate impairment in global LV function, estimate ejection fraction being 40% with moderate [place] [address] CARDIAC CATH REPORT Name: LORENA GOULD Room: [address] Evette Chaudhary#: [id number] Admission: 03/11/19 Attend Phys: Michael Godoy MD, Discharge: 03/12/19 Date of : 51 Report #: [id number] #3 mild elevation of left ventricular end-diastolic pressure at rest #4 successful percutaneous coronary intervention with atherectomy and stenting of the mid LAD stenting of the proximal and distal LAD with 0% residual narrowings at all 3 sites #5 successful percutaneous coronary intervention with deployment of drug-eluting stent at site of 80% proximal circumflex stenosis with 0% residual narrowing #6 successful percutaneous coronary intervention with deployment of a drug-eluting stent at site of 70% distal left main coronary stenosis with 10% residual narrowing and PIYUSH-3 flow to the LAD and circumflex Recommendations Cardiac Risk Reduction Program Aggressive Medical Therapy Medications Administered Aspirin (any) Prasugrel Diagnostic Cath Approved by: Michael Godoy MD Date/Time: 03/12/2019 11:29:54 <ELECTRONICALLY SIGNED> By: Michael Godoy MD, [facility] 03/12/19 1131 1131 1131Michael Godoy MD, FACC /INF
--- NOTE | 2019-03-12 15:51 | EKG ---
[place] [address] ELECTROCARDIOGRAM REPORT Name: LORENA GOULD Room: [address]#: [id number] Admission: 03/11/19 Attend Phys: Michael Godoy MD, Discharge: 03/12/19 Date of : 51 Report #: [id number] THIS REPORT FOR: //name// [facility] Test Date: 2019-03-12 Test Time: 08:35:17 Pat Name: LORENA GOULD Department: Room: [facility] Gender: M Computer Numeric Control Setter: : 1955 Requested By: Michael Godoy Order Number: [id number] Reading MD: Michael Godoy Measurements Intervals [place] Rate: 55 P: 61 SC: 178 QRS: 32 QRSD: 76 T: 124 QT: 435 QTc: 416 Interpretive Statements Sinus rhythm Abnormal T, consider ischemia, lateral leads Baseline wander in lead(s) I,III,aVL Compared to ECG 03/11/2019 14:27:26 T-wave abnormality now present Early repolarization no longer present Possible ischemia still present Electronically Signed On 03-12-2019 15:51:13 HARBOR PILOT by Michael Godoy [email or web address] <ELECTRONICALLY SIGNED> By: Michael Godoy MD, FACC 03/12/19 1551 0835 0835 Michael Godoy MD, FAC /EPI
--- NOTE | 2019-03-12 16:52 | D ---
[address] [address] DISCHARGE SUMMARY Name: LORENA GOULD Room: [address] Evette Chaudhary#: [id number] Admission: 03/11/19 Attend Phys: Michael Godoy MD, Discharge: 03/12/19 Date of : 51 Report #: [id number] THIS REPORT FOR: //name// CC: MEJIA Godoy Physician staff DATE OF SERVICE: 03/11/2019 FINAL DISCHARGE DIAGNOSES: 1. Unstable angina. 2. Coronary artery disease. 3. Status post percutaneous coronary intervention with stenting of the left main, atherectomy with stenting of the LAD and stenting of the circumflex. 4. Hypertension. 5. Hyperlipidemia. 6. Type 2 diabetes. 7. Moderate weight excess. PROCEDURES: 03/11/2019 -- left heart catheterization, left ventriculography, selective coronary arteriography, and percutaneous coronary intervention with atherectomy and stenting of the LAD, stenting of the left main into the LAD, and stenting of the circumflex. HISTORY AND HOSPITAL COURSE: The patient is a very pleasant 64-year-old Palestinian male with complex coronary artery disease, status post prior percutaneous coronary interventions approximately 1 year ago. He presented to the office with recurrent chest discomfort and presented to the ER yesterday with increasing episodes of chest discomfort with modest activity with a clinical pattern of unstable angina. He has underlying diabetes, hypertension, and hyperlipidemia. In this context, I performed cardiac catheterization on 03/11/2019, which revealed 70% distal left main coronary stenosis, 90% proximal left anterior descending narrowing with tandem 80% mid LAD in-stent restenosis and 80-90% distal LAD narrowing with 75-80% proximal circumflex stenosis. Right coronary was occluded chronically and is modest in size. Given this data, I performed complex percutaneous coronary intervention with atherectomy and stenting of the mid left anterior descending, deployment of a 3.0 x 12 mm Girard stent in the left main into the LAD, post-dilated to 3.5 mm into the proximal portion involving the left main with 0% residual narrowing and stenting of the proximal circumflex with 0% residual narrowing. The patient did well post-procedurally. His troponin rising inconsequentially to 0.08. He ambulated in the hallways without difficulty and there was good hemostasis at the right [place] [address] DISCHARGE SUMMARY Name: LORENA GOULD Room: [address] Evette Chaudhary#: [id number] Admission: 03/11/19 Attend Phys: Michael Godoy MD, Discharge: 03/12/19 Date of : 51 Report #: [id number] LABORATORY DATA: Lab revealed sodium 139, potassium 3.9, BUN 16, creatinine 0.9, and glucose 139. White blood cell count 6200, hemoglobin 14.8, hematocrit 43.9, and platelets 109,000. LDL 116, HDL 32, triglycerides 123, and total cholesterol 172. DISCHARGE MEDICATIONS: The patient was discharged to home in stable condition on 03/12/2019 on the following medications: Humira 40 mg subcutaneously every 2 weeks, aspirin 81 mg daily, carvedilol 6.25 mg b.i.d., etodolac 400 mg b.i.d., aspart insulin 100 units subcutaneously daily, Levemir insulin 40 units subcutaneously daily, losartan 25 mg daily, metformin 500 mg b.i.d. to be resumed on 03/14/2019, prasugrel 10 mg daily with a 60 mg loading dose given kristin-procedurally, and p.r.n. sublingual nitroglycerin. He is scheduled to return to see me in the office on 03/29/2019 at 1300 hours at [facility]. Therefore, the patient is discharged to home in stable condition on the aforementioned medications with followup as iterated above. <ELECTRONICALLY SIGNED> By: Michael Godoy MD, FACC 03/12/19 1652 0925 0946Michael Godoy MD, FACC /nt
== END 2019-03-12 10:52 | disposition home or self-care (01) ==
LOC: M.ERS 08:56 → M.TBA-CV 11:42 → M.2W 14:23
PROVIDERS: Family Medicine; ADMIT Internal Medicine
DX: I25.110 Atherosclerotic heart disease of native coronary artery with unstable angina pectoris (principal); I10 Essential (primary) hypertension; E78.5 Hyperlipidemia, unspecified; E11.9 Type 2 diabetes mellitus without complications; R63.5 Abnormal weight gain; Z68.35 Body mass index [BMI] 35.0-35.9, adult; Z79.82 Long term (current) use of aspirin; Z79.4 Long term (current) use of insulin; Z79.899 Other long term (current) drug therapy; Z87.891 Personal history of nicotine dependence; Z95.5 Presence of coronary angioplasty implant and graft

== ENCOUNTER 2019-08-16 10:25 | Observation (INO) | payer OTHER ==
[~2019-08-16] VITALS: Ht 152.4 cm; Wt 118.8 kg
[2019-08-16] VITALS (15 sets, daily range): BP systolic 126–164; BP diastolic 56–103
[~2019-08-16 10:25] MED LIST changes: +EFFIENT10 MG PO; +HUMIRA PEN40 MG/0.4 SUBQ; +LEVEMIR FL100 UNIT/2 SUBQ; +NOVOLOG FL100 UNIT/M SUBQ
[2019-08-16] MEDS ORDERED: TRULICITY0.75 MG/0. (10:36)
[2019-08-16] MEDS ORDERED: FAMOTIDINE 40 M40 M1 PO (10:37)
[2019-08-16] MEDS ORDERED: FLOMAX0.4 MG PO (10:37)
[2019-08-16 10:53] LABS: ABSOLUTE EOSINOPHILS 0.2 thou/uL (0.0-0.7); ABSOLUTE LYMPHOCYTES 1.7 thou/uL (0.8-5.3); ABSOLUTE MONOCYTES 0.5 thou/uL (0.0-1.2); ABSOLUTE NEUTROPHILS 2.9 thou/uL (1.6-8.1); BASOPHILS 0.3 %; EOSINOPHILS 3.9 %; HEMOGLOBIN 14.7 gm/dL (14.0-18.0); LYMPHOCYTES 32.1 %; MCH 31.4 pg (26.0-34.0); MCHC 34.3 g/dL (28.0-37.0); MCV 91.6 fL (80.0-100.0); MONOCYTES 9.6 %; MPV 10.8 fl. (7.2-11.1); NUCLEATED RBCS 0 /100WBC; PLATELET COUNT* 112 thou/uL (150-400); POLYS 54.1 %; RBC 4.69 mil/uL (4.50-6.00); RDW-CV 14.3 % (10.5-14.5); WBC 5.3 thou/uL (4.0-11.0)
[2019-08-16 11:04] LABS: APTT 21.9 Seconds (25.0-31.3); INR 1.1; PROTIME 10.9 Seconds (9.20-11.50)
[2019-08-16 11:17] LABS: CALCIUM 8.4 mg/dL (8.5-10.1); CREATININE 1.1 mg/dL (0.6-1.3); POTASSIUM 4.5 mmol/L (3.5-5.1)
[2019-08-16 11:28] LABS: ALBUMIN 3.8 g/dL (3.4-5.0); TOTAL BILIRUBIN 0.6 mg/dL (<0.1-1.0); TOTAL PROTEIN 7.9 g/dL (6.4-8.2)
--- NOTE | 2019-08-16 16:32 | EKG ---
[place] [address] ELECTROCARDIOGRAM REPORT Name: LORENA GOULD [place] Room: [address] M.R.#: [id number] Admission: 08/16/19 Attend Phys: Marlen Patel Discharge: Date of : 51 Date of Service: 08/16/19 1032 Report #: [id number] THIS REPORT FOR: //name// [facility] ED Test Date: 2019-08-16 Test Time: 10:32:22 Pat Name: LORENA GOULD Department: Room: [facility] Gender: M Biologist: [facility] : 1955 Requested By: Debi Mancini Order Number: [id number] MD: Michael Godoy Measurements Intervals [place] Rate: 66 P: 69 NM: 159 QRS: 22 QRSD: 83 T: 128 QT: 405 QTc: 425 Interpretive Statements Sinus rhythm Abnormal inferior Q waves Abnormal T, consider anterolateral ischemia Compared to ECG 03/12/2019 08:35:17 T-wave abnormality still present Possible ischemia still present Electronically Signed On 08-16-2019 16:30:24 CDT by Michael Godoy [email or web address] <ELECTRONICALLY SIGNED> By: Michael Godoy MD, FACC 08/16/19 1630 1032 1032 Michael Godoy MD, FAC /EPI
--- NOTE | 2019-08-16 16:37 | EKG ---
[place] [address] ELECTROCARDIOGRAM REPORT Name: LORENA GOULD Room: [address] M.R.#: [id number] Admission: 08/16/19 Attend Phys: Marlen Patel Discharge: Date of : 51 Date of Service: 08/16/19 1555 Report #: [id number] THIS REPORT FOR: //name// [facility] Test Date: 2019-08-16 Test Time: 15:55:40 Pat Name: LORENA GOULD Department: Room: [facility] Gender: M Commissioner Public [employer]: ARLET : 1955 Requested By: Michael Godoy Order Number: [id number] Reading MD: Michael Godoy Measurements Intervals [place] Rate: 58 P: 60 DC: 166 QRS: 17 QRSD: 84 T: 110 QT: 435 QTc: 428 Interpretive Statements Sinus rhythm Inferior infarct, old Lateral leads are also involved Compared to ECG 03/12/2019 08:35:17 Myocardial infarct finding now present T-wave abnormality no longer present Possible ischemia no longer present Electronically Signed On 08-16-2019 16:35:27 CDT by Michael Godoy [email or web address] <ELECTRONICALLY SIGNED> By: Michael Godoy MD, FACC 08/16/19 1635 1555 1555 Michael Godoy MD, FAC /EPI
--- NOTE | 2019-08-16 16:53 | CARD ---
[address] [address] CARDIAC CATH REPORT Name: LORENA GOULD Room: [address] Evette M.RRandi#: [id number] Admission: 08/16/19 Attend Phys: Michael Godoy MD, Discharge: Date of : 51 Report #: [id number] THIS REPORT FOR: //name// cc: FRANK - No family physician/PCP FRANK - No family physician/PCP ~ APPROVED REPORT Study performed: 08/16/2019 10:32:22 Patient Details Patient Status: ED Room #: 207 The patient is a 64 year-old male Event Personnel Michael Godoy Personnel Adviser, Janessa Kendall RN, Jony Burdick RN RN, Tonny Rodrigeuz RTR Scrub, Natasha Grijalva RTR Monitor Procedures Performed Art Access - R femoral artery, Left Heart Cath w/or w/o Coronaries LHC, CHU Place w/wo Plasty Single RCA, CHU Place w/wo Plasty Single Left Main , PTCA Single Vessel CIRC PCISINGLE, Hemostasis w/ Angioseal Indication Unstable angina Previous Procedures/Diagnoses Previous PCI Admission/Lab Medications/Medications given during procedure Oxygen Nasal cannula 2 l per min, Lidocaine Subcut 18 ml, Angiomax IV bolus 16.5 ml, Angiomax Drip IV 38.11 ml per hr, Nitroglycerin IC 400 mcg, Effient PO 30 mg, Aspirin PO 162 mg Procedure Narrative The patient was brought urgently to the Cardiac Catheterization Laboratory and was prepped and draped in a sterile manner. The right femoral groin area was infiltrated with 2% Lidocaine subcutaneous anesthesia. A 6F [place] sheath was inserted into the right femoral artery. Coronary angiography was performed using coronary diagnostic catheters. The right coronary system was accessed and visualized with a 6F JR4 catheter. The left coronary system was accessed and visualized with a 6F JL4 catheter. The left ventricle was accessed and visualized with a 6F Pig[place] catheter. Left ventricular/[place] [address] CARDIAC CATH REPORT Name: LORENA GOULD Room: [address] M.R.#: [id number] Admission: 08/16/19 Attend Phys: Michael Godoy MD, Discharge: Date of : 53 Report #: [id number] Valve gradient assessed via catheter pullback. Left ventriculogram was performed in [place]ARREN projection. Pre-demployment femoral angiogram was performed . Closure device was deployed with a 6 Fr Angioseal STS. The patient tolerated the procedure well and there were no complications associated with the procedure. There was no hematoma. Intraoperative Conscious Sedation Sedation start time: 12:32 Case end Time: 14:26 Fentanyl 25 mcg Versed 2 mg Fluoro Time: 26.1 minutes Dose: DAP 838177 cGycm2 4605 mGy Contrast Type and Amount: Visipaque 420 ml Coronary Angiography The patient's coronary anatomy is co- dominant. Diagnostic Cath Left Main 70% distal narrowing LAD Widely patent proximal and mid LAD stents with 40% mid vessel narrowing Circumflex 75% ostial proximal narrowing with a widely patent mid vessel stent and total distal circumflex occlusion Right Coronary Small codominant vessel with 90% proximal and 80% mid vessel stenosis Left Ventriculography The left ventricle is normal in size with normal contractility. The left ventricular ejection fraction is estimated to be 60%. Left ventricular wall motion abnormalities are not present. There is no mitral insufficiency. Hemodynamics The aortic pressure is 145/64 mmHg with a mean of 92 mmHg. The left ventricular pressure is 139/1 mmHg with a mean of mmHg. The left ventricular end diastolic pressure is 11 mmHg. There was no gradient across the aortic valve upon pullback. PCI Technique Lesion Anticoagulation was achieved with Angiomax. Patient was preloaded with Angiomax IV bolus 16.5 ml. Percutaneous coronary intervention was performed on the proximal right coronary artery. The lesion stenosis prior to intervention was 90% with PIYUSH 3 flow. A 6Fr JR 4.0 SH Guide Catheter was used to engage [place] [address] CARDIAC CATH REPORT Name: LORENA GOULD Room: [address] M.R.#: [id number] Admission: 08/16/19 Attend Phys: Michael Godoy MD, Discharge: Date of : 53 Report #: [id number] 180CM Interventional Guidewire was used to cross the lesion. BALLOON DILATION A Balloon catheter Mini Trek RX 2.0 X 12 was inserted and inflated up to 12.00atm for 13seconds. Additional Inflation: 15.00atm for 9seconds. STENT DEPLOYMENT A drug-eluting stent Oleg RX Stent 2.0X15mm was inserted and inflated up to 10.00atm for 9seconds. Additional Inflation: 12.00atm for 8seconds. POST STENT DEPLOYMENT BALLOON DILATION A Balloon catheter Mini Trek RX 2.0 X 12 was inserted and inflated up to 10.00atm for 10seconds. Additional Inflation: 10.00atm for 9seconds. A balloon catheter NC Trek 2.0 x 8 was inserted and inflated up to 20 erica for 6 seconds. Additional inflation 22 erica for7 seconds. Final angiography reveals 0 % stenosis with PIYUSH 3 flow. PCI Technique Lesion 2 Percutaneous Coronary Intervention was performed on the mid right coronary artery. Patient was preloaded with Angiomax IV bolus 16.5 ml. The lesion stenosis prior to intervention was 80% with PIYUSH 3 flow. A 6Fr JR 4.0 SH Guide Catheter was used to engage the right ostium. A ProwaterFlex 180CM Interventional Guidewire was used to cross the lesion. Stent Deployment A drug-eluting stent [place] RX Stent 2.0X18mm was inserted and inflated up to 10.00atm for 7seconds. Additional Inflation: 12.00atm for 7seconds. Additional Inflation: 14.00atm for 12seconds. Post Stent Deployment Balloon Dilation A Balloon catheter NC Trek RX 2.0 X 8 was inserted and inflated up to 18.00atm for 9seconds. Additional Inflation: 20.00atm for 8seconds. Final angiography reveals 10 % stenosis with PIYUSH 3 flow. PCI Technique Lesion 3 Percutaneous Coronary Intervention was performed on the Distal left main coronary artery. Patient was preloaded with Angiomax IV bolus 16.5 ml. The lesion stenosis prior to intervention was 70% with PIYUSH 3 flow. A 6F XB LAD 3.5 Guide Catheter was used to engage the left [facility] [address] [place] [address] CARDIAC CATH REPORT Name: LORENA GOULD Room: [address] Jet#: [id number] Admission: 08/16/19 Attend Phys: Michael Godoy MD, Discharge: Date of : 53 Report #: [id number] main ostium. A BMW 190cm and ProwaterFlex 180cm Interventional Guidewire was used to cross the lesion. Balloon Dilation A Balloon catheter Trek RX 2.5 X 12 was inserted and inflated up to 12.00atm for 22seconds. Additional Inflation: 15.00atm for 10seconds. A balloon catheter NC Trek 3.25 x 8 was inserted and inflated up to 14 erica for 7 seconds. Additional inflations 18 erica for 15 seconds; 20 erica for 7 seconds. Stent Deployment A drug-eluting stent Oleg RX Stent 3.5X12mm was inserted and inflated up to 12.00atm for 9seconds. Additional Inflation: 15.00atm for 10seconds. Additional Inflation: 16.00atm for 10seconds. Final angiography reveals 0 % stenosis with PIYUSH 3 flow. Comments Procedure was technically complex by virtue of the multivessel nature of the procedure and requirement for stenting of the unprotected distal left main coronary artery. PCI Technique Lesion 4 Percutaneous Coronary Intervention was performed on the ostial circumflex artery segment. Patient was preloaded with Angiomax IV bolus 16.5 ml. Percutaneous coronary intervention was performed on the proximal circumflex artery segment. The lesion stenosis prior to intervention was 75% with PIYUSH 3 flow. A 6F XB LAD 3.5 Guide Catheter was used to engage the left main ostium. A BMW 190cm Interventional Guidewire was used to cross the lesion. Balloon Dilation A Balloon catheter Trek RX 2.25 X 8 was inserted and inflated up to 15.00atm for 13seconds. Additional Inflation: 16.00atm for 7seconds. Final angiography reveals 20 % stenosis with PIYUSH 3 flow. Conclusion 1. Significant multivessel coronary artery disease characterized by the following: A 70% clefted distal left [place] [address] CARDIAC CATH REPORT Name: LORENA GOULD [address] [id number] Admission: 08/16/19 Attend Phys: Michael Godoy MD, Discharge: Date of : 53 Report #: [id number] B widely patent proximal and mid LAD stents with 40% mid LAD narrowing C codominant circumflex with 75% ostial proximal narrowing widely patent mid vessel stent and total distal occlusion D small codominant right coronary with 90% proximal and 80% mid vessel stenosis 2. Normal left ventricular systolic function, estimated ejection fraction being 60% 3. Normal left-sided hemodynamics study 4. Successful percutaneous coronary intervention with deployment of sequential drug-eluting stents at the sites of 90 and 80% proximal and mid right coronary stenosis with 0 and 10% residual narrowings and PIYUSH-3 flow to the distal vessel 5. Successful percutaneous coronary intervention with deployment of drug-eluting stent at the site of 70% clefted distal left main coronary stenosis with 0% residual narrowing and PIYUSH III flow to the distal vasculature 6. Successful percutaneous transluminal coronary angioplasty at the site of 75% ostial proximal circumflex narrowing with 20% residual narrowing and PIYUSH-3 flow to the distal vessel Recommendations Cardiac Risk Reduction Program Aggressive Medical Therapy Medications Administered Aspirin (any) Prasugrel Diagnostic Cath Approved by: Michael Godoy MD Date/Time: 08/16/2019 16:49:16 <ELECTRONICALLY SIGNED> By: Michael Godoy MD, FACC 08/16/191650 50 50Michael Godoy MD, FACC /INF
--- NOTE | 2019-08-16 16:54 | NUR ---
PT ADMITTED ON TELE FLOOR FROM ELEMENTARY EDUCATION TUTOR. REPORT RECEIVED FROM ELEMENTARY EDUCATION TUTOR NURSE. PT IS AOX4. VS TAKEN. VS TO BE TAKEN Q15 MINUTES PER PROTOCOL. PT ON RA. O2 SATURATION IS 95%. RIGHT GROIN SITE IS INTACT, DRESSING TRANSPARENT. NO BLEEDING, NO PAIN. PT INSTRUCTED TO STAY ON BEDREST UNTIL 2100. NELSON IN PLACE. FOOD PROVIDED. ACCUCHECH. PT WILL NEED INSULIN. WILL CONTACT FOR INSULIN ORDER. TRACING SR ON SPORTS MANAGER. PT IS NON-TURKISH SPEAKING. TRANSLATION SERVICE FROM DAUGHTER USED AT TIME OF ADMISSION. CALL LIGHT WITHIN REACH. IV FLUID INFUSING AT 100 PER HOUR. WILL CONTINUE TO MONITOR
[2019-08-17 00:05] VITALS: BP 145/65
[2019-08-17 04:09] VITALS: BP 159/68
--- NOTE | 2019-08-17 05:26 | NUR ---
PT A&O X4, VSS ON RA. MEDS GIVEN ORDERED. PT DENIED PAIN. DRESSING TO RT GROIN C/D/I. NELSON CATH D/GARCÍA. UP STANDBY TO THE BATHROOM. PT SLEEPING WELL THROUGH THE NIGHT. HOURLY ROUNDINGS COMPLETED. WILL CONTINUE TO MONITOR.
[2019-08-17 06:14] LABS: HEMATOCRIT 42.6 % (42.0-52.0); HEMOGLOBIN 14.5 gm/dL (14.0-18.0); MCHC 34.2 g/dL (28.0-37.0); MCV 90.8 fL (80.0-100.0); MPV 10.8 fl. (7.2-11.1); RBC 4.69 mil/uL (4.50-6.00); WBC 7.1 thou/uL (4.0-11.0)
[2019-08-17 06:30] LABS: ALBUMIN 3.4 g/dL (3.4-5.0); ALKALINE PHOSPHATASE 66 U/L (46-116); ANION GAP 5 mmol/L (7-16); BUN 14 mg/dL (7-18); CALCIUM 8.3 mg/dL (8.5-10.1); CHLORIDE 102 mmol/L (98-107); CHOLESTEROL 138 mg/dL (<200); CO2 32 mmol/L (21-32); CREATININE 0.9 mg/dL (0.6-1.3); GLUCOSE 108 mg/dL (70-99); HDL CHOLESTEROL 40 mg/dL (>40); LDL CHOLESTEROL 67 mg/dL (<100); POTASSIUM 3.7 mmol/L (3.5-5.1); SERUM ASSESSMENT Clear; SGOT 17 U/L (15-37); SGPT 24 U/L (30-65); SODIUM 139 mmol/L (136-145); TC:HDL 3.5 Ratio (Not establshd); TOTAL BILIRUBIN 0.7 mg/dL (<0.1-1.0); TOTAL PROTEIN 7.4 g/dL (6.4-8.2); TRIGLYCERIDE 157 mg/dL (<150); TROPONIN-I LEVEL <0.06 ng/mL (<0.06); VLDL 31 mg/dL (<40)
[2019-08-17 07:49] VITALS: BP 167/89
[2019-08-17 09:39] VITALS: BP 167/89
[2019-08-17 09:49] VITALS: BP 167/89
[2019-08-17 10:59] VITALS: BP 167/89
--- NOTE | 2019-08-17 11:04 | EKG ---
[place] [address] ELECTROCARDIOGRAM REPORT Name: LORENA GOULD Room: [address] M.R.#: [id number] Admission: 08/16/19 Attend Phys: Marlen Patel Discharge: Date of : 51 Date of Service: 08/17/19 0809 Report #: [id number] THIS REPORT FOR: //name// [facility] Test Date: 2019-08-17 Test Time: 08:09:39 Pat Name: LORENA GOULD Department: Room: [facility] Gender: M Supervisor Waterworks: : 1955 Requested By: Michael Godoy Order Number: [id number] Reading MD: Michael Godoy Measurements Intervals [place] Rate: 64 P: 54 NV: 159 QRS: 6 QRSD: 100 T: 134 QT: 415 QTc: 428 Interpretive Statements Sinus rhythm Inferior infarct, old anterolateral st-t changes, consider ischemia Compared to ECG 08/16/2019 15:55:40 No significant changes Electronically Signed On 08-17-2019 11:02:46 CDT by Michael Godoy [email or web address] <ELECTRONICALLY SIGNED> By: Michael Godoy MD, [facility] 08/17/19 1102 0809 0809 Michael Godoy MD, [facility] /EPI
--- NOTE | 2019-08-17 11:20 | NUR ---
ASSUMED PT CARE REPORT RECEIVED FROM NURSE PT IS AOX4. ON RA SR ON CARIDAC MONITOR. O2 SATURATION 100% RA. RIGHT GROIN SITE PATENT AND INTACT/ DENIES PAIN. DISCHARGE ORDERED. IV LINE REMOVED. HEART MONITOR RETRIEVED. DISCHARGE INSTRUCTIONS GIVEN TO PATIENT. DAUGHTER PICKED UP PT FROM ER. PT LEFT UNIT ON WHEELCHAIR ACCOMPANIED BY NURSE TECH. BELONGING BROUGHT ALONG
--- NOTE | 2019-08-18 16:55 | H ---
[place] [address] HISTORY AND PHYSICAL Name: LORENA GOULD Room: [address] Evette Chaudhary#: [id number] Admission: 08/16/19 Attend Phys: Michael Godoy MD, Discharge: 08/17/19 Date of : 51 Report #: [id number] THIS REPORT FOR: //name// cc: FRANK Park family physician/PCP FRANK Park family physician/PCP ~ THIS REPORT FOR: //name// CC: FRANK physician/PCP Michael Godoy DATE OF SERVICE: 08/16/2019 HISTORY OF PRESENT ILLNESS: The patient is a 64-year-old Italian male with complex coronary artery disease, status post multiple prior percutaneous coronary interventions, most recently to the distal left main and proximal mid LAD and mid circumflex 5 months ago. He had done well until approximately 1 month ago when he began to note a decrease in functional capacity. During the last week, he notes shortness of breath crossing from one room to another. He denies accompanying chest discomfort, but the dyspnea has progressed markedly and reflected an anginal equivalent in the past. He does have major risk factors for coronary artery disease including aggressive diabetes, hypertension, hyperlipidemia and weight excess. OUTPATIENT MEDICATIONS: Have included Humira, atorvastatin, carvedilol, Trulicity, Pepcid, hydrochlorothiazide, NovoLog insulin, Levemir insulin, losartan, metformin and sublingual nitroglycerin as well as prasugrel 10 mg daily. He has been compliant with his medical regimen. PAST MEDICAL HISTORY: Remarkable for the following: Hypertension, diabetes, arthritis and mixed hyperlipidemia as well as weight excess. SOCIAL HISTORY: He is a nonsmoker. He is . PHYSICAL EXAMINATION: GENERAL: Reveals a mildly distressed, overweight middle-aged Italian male. VITAL SIGNS: Blood pressure is 115/60, pulse rate is 68 and respirations are 18 per minute. NECK: Jugular venous pressure is normal. Carotids are 1+. CHEST: Clear. CARDIAC: Reveals normal first and second heart sounds with a question of an S4 gallop. ABDOMEN: Moderately obese. EXTREMITIES: Without edema with intact femoral, [place] [address] HISTORY AND PHYSICAL Name: LORENA GOULD [address]: [address] [id number] Admission: 08/16/19 Attend Phys: Michael Godoy MD, Discharge: 08/17/19 Date of : 51 Report #: [id number] IMPRESSION: 1. Unstable angina. 2. Coronary artery disease, status post multiple prior percutaneous coronary interventions including 5 months ago to the left main, mid left anterior descending and mid circumflex. 3. Type 2 diabetes. 4. Hypertension. 5. Hyperlipidemia. 6. Weight excess. RECOMMENDATIONS: Given the aforementioned clinical scenario, I would recommend urgent cardiac catheterization to define current coronary anatomy and prospects for subsequent therapeutic modification. This has been discussed with the patient and the family. Thirty-five minutes of critical care time from 10:40 to 11:15 on 08/16/2019. <ELECTRONICALLY SIGNED> By: Michael Godoy MD, [facility] 08/18/19 1655 1116 1159Michael Godoy MD, FAC /nt
--- NOTE | 2019-08-18 16:55 | D ---
[address] [address] DISCHARGE SUMMARY Name: LORENA GOULD Room: [address] Evette Chaudhary#: [id number] Admission: 08/16/19 Attend Phys: Michael Godoy MD, Discharge: 08/17/19 Date of : 51 Report #: [id number] THIS REPORT FOR: //name// cc: FRANK - Vivian family physician/PCP FRANK - Vivian family physician/PCP ~ THIS REPORT FOR: //name// CC: FRANK physician/PCP Michael Godoy DATE OF SERVICE: 08/17/2019 FINAL DISCHARGE DIAGNOSES: 1. Unstable angina. 2. Coronary artery disease. 3. Status post percutaneous coronary intervention to the left main, right coronary artery and proximal circumflex. 4. Hypertension. 5. Hyperlipidemia. 6. Type 2 diabetes. PROCEDURES: On 08/16/2019 -- left heart catheterization, left ventriculography, selective coronary arteriography and percutaneous coronary intervention with stenting of the distal left main, proximal and mid right coronary artery and angioplasty of the proximal circumflex. The patient is a very pleasant 64-year-old [place] male with a history of multiple prior percutaneous coronary interventions. During the preceding 3-4 weeks, he has noted an increase in dyspnea on exertion such as walking from one room to another brings him shortness of breath with mild chest discomfort. This was similar to his prior ischemic syndrome. He presented to the ER on 08/16/2019 with increasing dyspnea on exertion, felt to represent an anginal equivalent following an unstable pattern. In this context, I performed cardiac catheterization on 08/16/2019. That study revealed 70% cleft at distal left main coronary stenosis with widely patent proximal and mid LAD stents. There was 90% proximal and 80% tubular mid right coronary artery stenosis, this being small but nondominant vessel. There was 75% ostial circumflex narrowing with a widely patent mid circumflex and total distal circumflex occlusion as noted before. Given this data, I performed percutaneous coronary intervention, deploying one 3.5 x 12 mm [place] drug-eluting stent in the distal left main with 0% residual narrowing. I placed two drug-eluting stents in the proximal mid right coronary artery, 2.0 x 15 and 2.0 x 18, sequentially with 0 and 10% residual narrowings and PIYUSH 3 flow of the distal vessel. I performed angi[place] [address] DISCHARGE SUMMARY Name: LORENA GOULD Room: [address] [id number] Admission: 08/16/19 Attend Phys: Michael Godoy MD, Discharge: 08/17/19 Date of : 51 Report #: [id number] the circumflex with 20% residual narrowing following final dilatation and PIYUSH 3 flow of the distal vessel. The patient did well post-procedurally. There was no chest pain or undue dyspnea. He ambulated in the hallways without difficulty with good hemostasis at the right femoral site of catheterization. LABORATORY DATA: On 08/17/2019; revealed a sodium 139, potassium 3.7; BUN 14, down from 20; creatinine 0.9 down from 1.1; glucose 108 mg percent. Hemoglobin 14.5, white blood cell count 7100 and 108,000 platelets. Troponin was less than 0.06. MEDICATIONS: The patient was discharged to home on the following medications: Humira for rheumatoid arthritis 40 mg subcutaneously every 2 weeks, aspirin 81 mg daily, atorvastatin 40 mg daily, carvedilol 6.25 mg b.i.d., Trulicity 0.75 mg daily, famotidine 40 mg daily, NovoLog insulin 100 units subcutaneous daily p.r.n. for blood sugar, Levemir insulin 40 units subcutaneously daily, losartan 25 mg daily, metformin 500 mg b.i.d. to be resumed on 08/19/2019, prasugrel 10 mg daily with 30 mg kristin-procedural dose, and tamsulosin 0.4 mg daily. He also has p.r.n. sublingual nitroglycerin to be utilized if needed. I will plan to see the patient in the office in 1 week for followup with the timing to be called to the patient. Therefore, he is discharged to home in stable condition on the aforementioned medications with followup as iterated above. DISCHARGE TIME: 35 minutes; from 0905 to 0940 hours. <ELECTRONICALLY SIGNED> By: Michael Godoy MD, FACC 08/18/19 1655 0942 [id number] Godoy MD, FACC /nt
== END 2019-08-17 11:20 | disposition home or self-care (01) ==
LOC: M.CL 10:25 → M.ERS 10:25 → M.TBA-CV 11:53 → M.2W 11:53 → M.TBA-CV 15:06 → M.2W 15:40
PROVIDERS: Personal Emergency Response Attendant; ADMIT Internal Medicine
DX: I25.110 Atherosclerotic heart disease of native coronary artery with unstable angina pectoris (principal); E11.9 Type 2 diabetes mellitus without complications; I10 Essential (primary) hypertension; E78.5 Hyperlipidemia, unspecified

== ENCOUNTER 2020-06-28 10:19 | Observation (INO) | payer MEDICARE ==
[~2020-06-28] VITALS: Ht 177.8 cm; Wt 108.6 kg
[~2020-06-28 10:19] MED LIST changes: +FAMOTIDINE 40 M40 M1 PO; +TRULICITY0.75 MG/0.
[2020-06-28 10:25] VITALS: BP 135/66
[2020-06-28 11:06] LABS: ABSOLUTE EOSINOPHILS 0.1 thou/uL (0.0-0.7); ABSOLUTE LYMPHOCYTES 1.5 thou/uL (0.8-5.3); ABSOLUTE MONOCYTES 0.5 thou/uL (0.0-1.2); ABSOLUTE NEUTROPHILS 3.1 thou/uL (1.6-8.1); BASOPHILS 0.1 %; EOSINOPHILS 2.6 %; HEMATOCRIT 47.5 % (42.0-52.0); HEMOGLOBIN 15.9 gm/dL (14.0-18.0); LYMPHOCYTES 29.6 %; MCH 30.5 pg (26.0-34.0); MCHC 33.5 g/dL (28.0-37.0); MCV 90.8 fL (80.0-100.0); MONOCYTES 9.3 %; MPV 10.7 fl. (7.2-11.1); NUCLEATED RBCS 0 /100WBC; PLATELET COUNT* 114 thou/uL (150-400); POLYS 58.4 %; RBC 5.23 mil/uL (4.50-6.00); RDW-CV 14.6 % (10.5-14.5); WBC 5.2 thou/uL (4.0-11.0)
[2020-06-28 11:10] LABS: CALCIUM 8.9 mg/dL (8.5-10.1); POTASSIUM 4.2 mmol/L (3.5-5.1)
[2020-06-28 11:20] LABS: ALBUMIN 3.9 g/dL (3.4-5.0); MAGNESIUM 2.1 mg/dL (1.8-2.4); TOTAL BILIRUBIN 0.6 mg/dL (<0.1-1.0); TOTAL PROTEIN 8.1 g/dL (6.4-8.2)
[2020-06-28 11:29] LABS: APTT 23.1 Seconds (25.0-31.3); INR 1.1; PROTIME 11.2 Seconds (9.20-11.50)
[2020-06-28 12:00] VITALS: BP 127/68
--- NOTE | 2020-06-28 15:35 | EKG ---
[place] [address] ELECTROCARDIOGRAM REPORT Name: LORENA GOULD Room: [address] M.R.#: [id number] Admission: 06/28/20 Attend Phys: Marlen Patel Discharge: Date of : 51 Date of Service: 06/28/20 1023 Report #: [id number] THIS REPORT FOR: //name// [facility] ED Test Date: 2020-06-28 Test Time: 10:23:51 Pat Name: LORENA GOULD Department: Room: [facility] Gender: M Change Consultant: : 1955 Requested By: Michael Godoy Order Number: [id number] Reading MD: Michael Godoy Measurements Intervals [place] Rate: 66 P: 9 NV: 159 QRS: 17 QRSD: 87 T: 81 QT: 404 QTc: 424 Interpretive Statements Sinus rhythm Inferior infarct, old possible Compared to ECG 08/17/2019 08:09:39 ST (T wave) deviation no longer present Possible ischemia no longer present Myocardial infarct finding still present Electronically Signed On 06-28-2020 15:35:44 MUSIC JOURNALIST by Michael Godoy [email or web address] <ELECTRONICALLY SIGNED> By: Michael Godoy MD, FAC 06/28/20 1535 1023 1023 Michael Godoy MD, FAC /EPI
--- NOTE | 2020-06-28 15:37 | EKG ---
[place] [address] ELECTROCARDIOGRAM REPORT Name: LORENA GOULD [place] Room: [address] M.R.#: [id number] Admission: 06/28/20 Attend Phys: Marlen Patel Discharge: Date of : 51 Date of Service: 06/28/20 1510 Report #: [id number] THIS REPORT FOR: //name// [facility] Test Date: 2020-06-28 Test Time: 15:10:33 Pat Name: LORENA GOULD Department: Room: [facility] Gender: M Assembly Detailer: ARLET : 1955 Requested By: Salvador Rincon Order Number: [id number] MD: Michael Godoy Measurements Intervals [place] Rate: 55 P: 13 VA: 161 QRS: 12 QRSD: 92 T: 87 QT: 442 QTc: 423 Interpretive Statements Sinus rhythm Inferior infarct, old Compared to ECG 08/17/2019 08:09:39 ST (T wave) deviation no longer present Possible ischemia no longer present Myocardial infarct finding still present Electronically Signed On 06-28-2020 15:37:46 ROOM SERVER by Michael Godoy [email or web address] <ELECTRONICALLY SIGNED> By: Michael Godoy MD, FACC 06/28/20 1537 1510 1510 Michael Godoy MD, FAC /EPI
--- NOTE | 2020-06-28 16:20 | CARD ---
[address] [address] CARDIAC CATH REPORT Name: GOULDLORENA Room: [address] Evette M.Barbara#: [id number] Admission: 06/28/20 Attend Phys: Michael Godoy MD, Discharge: Date of : 51 Report #: [id number] THIS REPORT FOR: cc: Physician not on staff Physician not on staff ~ Michael Godoy MD [facility] APPROVED REPORT Study performed: 06/28/2020 11:57:50 Patient Details Patient Status: ED Room #: The patient is a 65 year-old male Event Personnel Meghna Gilbert RTR Scrub, Tonny Rodriguez RTR Monitor, Jony Burdick RN RN, Michael Godoy Stock Holder Procedures Performed Left Heart Cath w/or w/o Coronaries [id number] [facility] CHU w/Atherectomy Single LAD C[address] w/wo Plasty Addl BR PDA C9601 DESADDL Hemostasis w/ Angioseal Indication Unstable angina Risk Factors Family History, Hypercholesterolemia, Hypertension, Diabetes Previous Procedures/Diagnoses Previous PCI, Previous FL Admission/Lab Medications/Medications given during procedure Fentanyl IV 25 mcg, Midazolam (Versed) IV 1 mg, Lidocaine Subcut 20 ml, Angiomax IV 16.5 ml, Angiomax IV 38.39 ml per hr, Nitroglycerin IC 200 mcg, Effient PO 30 mg, Aspirin PO 162 mg Procedure Narrative The patient was brought urgently to the Cardiac Catheterization Laboratory and was prepped and draped in a sterile manner. The right femoral was infiltrated with 2% Lidocaine subcutaneous anesthesia. A [place] 6 FR sheath was inserted into the right femoral artery. Coronary angiography was performed using coronary diagnostic catheters. The right coronary system [place] [address] CARDIAC CATH REPORT Name: LORENA GOULD Room: [address]#: [id number] Admission: 06/28/20 Attend Phys: Michael Godoy MD, Discharge: Date of : 53 Report #: [id number] a Diagnostic JR4 6Fr catheter. The left coronary system was accessed and visualized with a Diagnostic JL4 6Fr catheter. The left ventricle was accessed and visualized with a Diagnostic Pigtail 6Fr catheter. Left ventricular/Aortic Valve gradient assessed via catheter pullback. Left ventriculogram was performed in WARREN projection. Pre-demployment femoral angiogram was performed . Closure device was deployed with a 6 Fr Angioseal. The patient tolerated the procedure well and there were no complications associated with the procedure. There was no hematoma. Intraoperative Conscious Sedation Sedation start time: 1232 Case end Time: 1354 Fentanyl 25 mcg Versed 1 mg Fluoro Time: 24.8 minutes Dose: DAP 635298 cGycm2 3453.16 mGy Contrast Type and Amount: Visipaque 390 ml Diagnostic Cath Left Main 20% distal narrowing LAD 70% focal proximal stenosis with 80% mid LAD in-stent stenosis and 90% distal LAD stenosis Circumflex Dominant vessel with 40% proximal narrowing and 90% stenosis at the origin of the prominent posterior descending branch. There was total occlusion of the distal circumflex of Right Coronary Small vessel with widely patent proximal and mid vessel stent; there were no significant stenoses noted Left Ventriculography The left ventricle is normal in size with normal contractility. The left ventricular ejection fraction is estimated to be 60%. Left ventricular wall motion abnormalities are present. There is no mitral insufficiency. Mid inferior hypo-akinesis is noted Hemodynamics The aortic pressure is 133/65 mmHg with a mean of 88 mmHg. The left ventricular pressure is 142/2 mmHg with a mean of mmHg. The left ventricular end diastolic pressure is 14 mmHg. There was no gradient across the aortic valve upon pullback. PCI Technique Lesion Anticoagulation was achieved with Angiomax. Percutaneous coronary intervention was performed on the mid left anterior descending artery segment. The lesion stenosis prior to intervention was 80% [place] [address] CARDIAC CATH REPORT Name: LORENA GOULD Room: [address] Evette M.R.#: [id number] Admission: 06/28/20 Attend Phys: Michael Godoy MD, Discharge: Date of : 53 Report #: [id number] 3 flow. A 6F XB LAD 3.5 Guide Catheter was used to engage the Left ostium. A IG: ProwaterFlex 180CM Interventional Guidewire was used to cross the lesion. BALLOON DILATION A Balloon catheter NC Trek RX 2.25x12 was inserted and inflated up to 18.00atm for 18seconds. Additional Inflation: 20.00atm for 10seconds. A Cutting Balloon Angiosculpt 2.5X 10mm was inserted and inflated up to 10.00 for 15 seconds. STENT DEPLOYMENT A drug-eluting stent Forrest RX Stent 2.12M62oj was inserted and inflated up to 16.00atm for 13seconds. Additional Inflation: 18.00atm for 12seconds. Additional Inflation: 20.00atm for 12seconds. Final angiography reveals 10 % stenosis with PIYUSH 3 flow. PCI Technique Lesion 2 Percutaneous Coronary Intervention was performed on the proximal left anterior descending artery segment. The lesion stenosis prior to intervention was 70% with PIYUSH 3 flow. A 6F XB LAD 3.5 Guide Catheter was used to engage the Left ostium. A IG: ProwaterFlex 180CM Interventional Guidewire was used to cross the lesion. Balloon Dilation A Balloon catheter NC Trek RX 2.75 X 8 was inserted and inflated up to 16.00atm for 14seconds. Additional Inflation: 12.00atm for 10seconds. A Cutting Balloon Angiosculpt 2.5X 10mm was inserted and inflated up 12.00 erica for 15 seconds. Additional Inflation: 15.00 erica for 20 seconds Stent Deployment A drug-eluting stent Oleg RX Stent 2.75X8mm was inserted and inflated up to 12.00atm for 11seconds. Additional Inflation: 15.00atm for 11seconds. Final angiography reveals 0 % stenosis with PIYUSH 3 flow. PCI Technique Lesion 3 Percutaneous Coronary Intervention was performed on the distal left anterior descending artery segment. The lesion stenosis prior to intervention was 90% with PIYUSH 3 flow. A 6F XB LAD 3.5 Guide Catheter was used to engage the Left ostium. A IG: ProwaterFlex 180CM Interventional Guidewire was used [place] [address] CARDIAC CATH REPORT Name: LORENA GOULD Room: [address]#: [id number] Admission: 06/28/20 Attend Phys: Michael Godoy MD, Discharge: Date of : 53 Report #: [id number] Stent Deployment A drug-eluting stent Forrest RX Stent 2.0X8mm was inserted and inflated up to 10.00atm for 15seconds. Additional Inflation: 12.00atm for 12seconds. Final angiography reveals 0 % stenosis with PIYUSH 3 flow. PCI Technique Lesion 4 Percutaneous Coronary Intervention was performed on the left posterolateral descending artery segment. The lesion stenosis prior to intervention was 90% with PIYUSH 3 flow. A 6F XB LAD 3.5 Guide Catheter was used to engage the Left ostium. A IG: BMW 190cm Interventional Guidewire was used to cross the lesion. Balloon Dilation A Balloon catheter Mini Trek RX 2.0 X 8 was inserted and inflated up to 10.00atm for 15seconds. Additional Inflation: 10.00atm for 12seconds. Additional Inflation: 14.00atm for 18seconds. Stent Deployment A drug-eluting stent Forrest RX Stent 2.0X8mm was inserted and inflated up to 10.00atm for 10seconds. Additional Inflation: 10.00atm for 10seconds. Final angiography reveals 0 % stenosis with PIYUSH 3 flow. Conclusion 1. Severe multivessel coronary artery disease characterized by the following: A 20% distal left main coronary narrowing B 70% very proximal LAD stenosis followed by 80% mid LAD in-stent restenosis and 90% distal LAD stenosis C dominant circumflex with 40% proximal narrowing and 90% narrowing of the proximal portion of the prominent posterior descending branch D modest size right coronary artery with widely patent proximal and mid vessel stents 2. Normal global LV function, estimated ejection fraction being 60% with mid inferior hypo- akinesis [address] [address] CARDIAC CATH REPORT Name: LORENA GOULD Room: [address]#: [id number] Admission: 06/28/20 Attend Phys: Michael Godoy MD, Discharge: Date of : 53 Report #: [id number] 3. Minimal elevation of left ventricular and diastolic pressure at rest 4. Successful atherotomy/atherectomy with stenting of the proximal and mid LAD with 0 and 10% residual narrowings and PIYUSH-3 flow to the distal vessel. 5. Successful PCI with deployment of drug-eluting stent at site of 90% distal LAD stenosis with 0% residual narrowing 6. Successful PCI with deployment of drug-eluting stent at site of 90% ostial-proximal stenosis of the prominent posterior descending branch of the dominant circumflex with 0% residual narrowing and PIYUSH-3 flow to the distal vessel Recommendations Cardiac Risk Reduction Program Medications Administered Aspirin (any) Prasugrel Diagnostic Cath Approved by: Michael Godoy MD Date/Time: 06/28/2020 16:12:42 <ELECTRONICALLY SIGNED> By: Michael Godoy MD, [facility] 06/28/20 1619 1619 1619Michael Godoy MD, [facility] /INF
[2020-06-28 20:00] VITALS: BP 135/71
[2020-06-29 00:35] VITALS: BP 129/67
[2020-06-29 04:19] VITALS: BP 150/72
[2020-06-29 04:40] LABS: HEMATOCRIT 45.7 % (42.0-52.0); HEMOGLOBIN 15.2 gm/dL (14.0-18.0); MCH 30.4 pg (26.0-34.0); MCHC 33.3 g/dL (28.0-37.0); MCV 91.3 fL (80.0-100.0); MPV 10.8 fl. (7.2-11.1); RBC 5.01 mil/uL (4.50-6.00); RDW-CV 14.5 % (10.5-14.5); WBC 6.7 thou/uL (4.0-11.0)
[2020-06-29 05:10] LABS: ALBUMIN 3.5 g/dL (3.4-5.0); ALKALINE PHOSPHATASE 54 U/L (46-116); ANION GAP 6 mmol/L (7-16); BUN 15 mg/dL (7-18); CHLORIDE 102 mmol/L (98-107); CHOLESTEROL 98 mg/dL (<200); CO2 30 mmol/L (21-32); CREATININE 0.9 mg/dL (0.6-1.3); GLUCOSE 140 mg/dL (70-99); HDL CHOLESTEROL 32 mg/dL (>40); LDL CHOLESTEROL 41 mg/dL (<100); POTASSIUM 3.7 mmol/L (3.5-5.1); SGOT 18 U/L (15-37); SGPT 29 U/L (30-65); SODIUM 138 mmol/L (136-145); TC:HDL 3.1 Ratio (Not establshd); TOTAL BILIRUBIN 0.7 mg/dL (<0.1-1.0); TOTAL PROTEIN 7.2 g/dL (6.4-8.2); TRIGLYCERIDE 125 mg/dL (<150); TROPONIN-I LEVEL 0.12 ng/mL (<0.06); VLDL 25 mg/dL (<40)
[2020-06-29 05:11] LABS: SERUM ASSESSMENT CLEAR
[2020-06-29 08:00] VITALS: BP 139/67
--- NOTE | 2020-06-29 09:45 | EKG ---
[place] [address] ELECTROCARDIOGRAM REPORT Name: LORENA GOULD Room: [address]R.#: [id number] Admission: 06/28/20 Attend Phys: Marlen Patel Discharge: Date of : 51 Date of Service: 06/29/20 0446 Report #: [id number] THIS REPORT FOR: //name// [facility] Test Date: 2020-06-29 Test Time: 04:46:18 Pat Name: LORENA GOULD Department: Room: [facility] Gender: M Market Superintendent: TR : 1955 Requested By: Michael Godoy Order Number: [id number] Elías MD: Roldan Viera Measurements Intervals [place] Rate: 63 P: 39 WV: 168 QRS: 1 QRSD: 88 T: 61 QT: 436 QTc: 447 Interpretive Statements Sinus rhythm Inferior infarct, old Compared to ECG 06/28/2020 15:10:33 No significant changes Electronically Signed On 06-29-2020 9:45:32 TECHNICAL PROJECT MANAGER by Roldan Viera [email or web address] <ELECTRONICALLY SIGNED> By: Roldan Viera MD, FACC 06/29/20 0945 0446 0446 Roldan Viera MD, [facility] /EPI
[2020-06-29 11:20] VITALS: BP 139/67
[2020-06-29 11:30] VITALS: BP 139/67
--- NOTE | 2020-07-01 12:26 | H ---
[address] [address] HISTORY AND PHYSICAL Name: LORENA GOULD Room: [address] Evette Chaudhary#: [id number] Admission: 06/28/20 Attend Phys: Michael Godoy MD, Discharge: 06/29/20 Date of : 51 Report #: [id number] THIS REPORT FOR: cc: Physician not on staff Physician not on staff ~ Michael Godoy MD [facility] DATE OF SERVICE: 06/28/2020 ADMITTING HISTORY AND PHYSICAL: HISTORY OF PRESENT ILLNESS: The patient is a very pleasant 65-year-old [place] male with complex coronary artery disease status post multiple prior PCIs. Most recently in 08/2019, he underwent stenting of the left main into the LAD with angioplasty of the ostium of the circumflex through the stent and with stenting of a small right coronary artery in its proximal and mid portions. Recently, he has noted recrudescence of chest pains, some with exertion and some at rest typical of his prior angina and nitrate responsive. Episodes of increased frequency and severity. There have been no protracted bouts of pain as all have responded to nitroglycerin. Risk factors for coronary artery disease include hypertension, hyperlipidemia, diabetes, and weight excess. PAST MEDICAL HISTORY: Remarkable for rheumatoid arthritis and gastroesophageal reflux disease. MEDICATIONS: Have included adalimumab, aspirin, atorvastatin, carvedilol, Trulicity, famotidine, hydrochlorothiazide, NovoLog insulin, Levemir insulin, losartan, metformin, nitroglycerin, prasugrel, and tamsulosin. SOCIAL HISTORY: The patient is . He is a nonsmoker. REVIEW OF SYSTEMS: Remarkable for the following: MUSCULOSKELETAL: He notes mild arthritic complaints. GENERAL: There has been moderate chronic weight excess. ENDOCRINE: He notes moderate diabetic control with some difficulty in the last several months. PHYSICAL EXAMINATION: GENERAL: Demonstrates a moderately overweight middle-aged male. VITAL SIGNS: His blood pressure is 140/70, pulse rate is 64, respirations are 18 per minute. NECK: Jugular venous pressure is normal. [place]ST: [place] [address] HISTORY AND PHYSICAL Name: LORENA GOULD Room: [address]#: [id number] Admission: 06/28/20 Attend Phys: Michael Godoy MD, Discharge: 06/29/20 Date of : 51 Report #: [id number] CARDIAC: Reveals normal first and second heart sounds with a soft systolic murmur and an S4 gallop. ABDOMEN: Moderately obese. No organomegaly is noted. EXTREMITIES: Without edema with intact femoral, pedal and radial pulses. EKG reveals sinus rhythm with a mild right axis deviation and minor IVCD right. No ischemic changes are noted. Renal function parameters are normal as is hemoglobin and white blood cell count and coagulation parameters. IMPRESSION: 1. Unstable angina. 2. Coronary artery disease status post multiple prior percutaneous coronary interventions. 3. Hypertension. 4. Diabetes. 5. Hypercholesterolemia. 6. Exogenous obesity. 7. Rheumatoid arthritis. RECOMMENDATIONS: Given the aforementioned clinical scenario with unstable angina on presentation, I would recommend recatheterization to document current coronary anatomy and prospects for subsequent therapeutic modification. This has been discussed with the patient and family. CRITICAL CARE TIME: Thirty-five minutes from 1100 to 1135 on 06/28/2020. <ELECTRONICALLY SIGNED> By: Michael Godoy MD, FACC 07/01/20 1226 1138 1228Michael Godoy MD, FAC /nt
--- NOTE | 2020-07-01 12:26 | D ---
[address] [address] DISCHARGE SUMMARY Name: LORENA GOULD Room: [address] Evette Chaudhary#: [id number] Admission: 06/28/20 Attend Phys: Michael Godoy MD, Discharge: 06/29/20 Date of : 51 Report #: [id number] THIS REPORT FOR: cc: Physician not on staff Physician not on staff ~ Michael Godoy MD [facility] DATE OF SERVICE: 06/29/2020 FINAL DISCHARGE DIAGNOSES: 1. Unstable angina. 2. Coronary artery disease. 3. Status post percutaneous coronary intervention to the left anterior descending and posterior descending branch to the circumflex. 4. Hypertension. 5. Hyperlipidemia. 6. Type 2 diabetes. PROCEDURES: 06/28/2020 - left heart catheterization, left ventriculography, selective coronary arteriotomy and percutaneous coronary intervention with atherectomy and stenting of the LAD and stenting of the prominent posterior descending artery of the dominant circumflex. The patient is a very pleasant 65-year-old [place]ian male with a history of complex coronary artery disease and multiple risk factors, including hypertension, hyperlipidemia, and diabetes. Recently, he has experienced recrudescence of angina with a pattern of clinical instability. In this context, I performed cardiac catheterization on 06/28/2020. That study revealed normal global LV function with estimated ejection fraction of 60% with focal mid inferior hypo to akinesis. He has significant coronary artery disease characterized by 70% ostial proximal LAD narrowing with 80% mid LAD in-stent restenosis and 90% distal LAD narrowing. There was 90% stenosis at the origin of the posterior descending branch of the dominant circumflex. The modest-sized right coronary artery demonstrated widely patent proximal and midvessel stents. In this context, I elected to proceed with PCI, performing atherotomy/atherectomy and stenting of the proximal and mid LAD with a stent deployed in the distal LAD; thus, 3 stents drug-eluting nature ([place]) were deployed in the proximal, mid, and distal LAD. I then performed PCI in the posterior descending branch of the dominant circumflex, deploying one 2.0 x 8 mm Oleg drug-eluting stent [place] [address] DISCHARGE SUMMARY Name: LORENA GOULD Room: [address] Evette Chaudhary#: [id number] Admission: 06/28/20 Attend Phys: Michael Godoy MD, Discharge: 06/29/20 Date of : 51 Report #: [id number] There was 0% residual narrowing of the stented circumflex site. With respect to the LAD, there was a 0, 10, and 0% residual narrowings in the proximal, mid, and distal portion. Troponin jey inconsequentially to 0.12 post-procedurally. He had no chest discomfort. Laboratory on 06/29/2020 revealed sodium 138, potassium 3.7, BUN 15, creatinine 0.9, glucose 140. Hemoglobin 15.2; white blood cell count 6700; with 111,000 platelets. Cholesterol 98, triglycerides 125, HDL 32, LDL 41. The patient ambulated in the hallways without difficulty and there was good hemostasis at the right femoral site of catheterization. He was discharged to home on the following medications: Carvedilol 6.25 mg b.i.d., p.r.n. sublingual nitroglycerin, losartan 25 mg daily, aspirin 81 mg daily, Levemir insulin 40 units subcutaneously daily, Humira 40 mg injections every 2 weeks for his rheumatoid arthritis, NovoLog insulin 100 units subcutaneously daily, atorvastatin 40 mg daily, prasugrel 10 mg daily with 30 mg kristin-procedural dose having been given, Trulicity 0.75 mg daily, famotidine 40 mg daily, and tamsulosin 0.4 mg daily. Metformin 500 mg b.i.d. will be resumed on the evening of 06/30/2020. The patient is scheduled to return to see me in the office on 08/17/2020 at 1540 hours at the [facility] office. Therefore, the patient is discharged to home in stable condition on the aforementioned medications with followup as described above. <ELECTRONICALLY SIGNED> By: Michael Godoy MD, FACC 07/01/20 1226 0929 1001Jomiguel Godoy MD, FACC /nt
== END 2020-06-29 12:00 | disposition home or self-care (01) ==
LOC: M.ERS 10:19 → M.TBA-ER 11:32 → M.2W 12:02
PROVIDERS: Emergency Medicine Emergency Medical Services; ADMIT Internal Medicine; ATTEND Internal Medicine
DX: I25.110 Atherosclerotic heart disease of native coronary artery with unstable angina pectoris (principal); Z20.822 Contact with and (suspected) exposure to COVID-19; I10 Essential (primary) hypertension; E11.9 Type 2 diabetes mellitus without complications; E78.5 Hyperlipidemia, unspecified; K21.9 Gastro-esophageal reflux disease without esophagitis; E66.09 Other obesity due to excess calories; M06.9 Rheumatoid arthritis, unspecified; Z68.34 Body mass index [BMI] 34.0-34.9, adult

== ENCOUNTER 2021-01-02 08:29 | Emergency (ER) | payer MEDICARE ==
[~2021-01-02] VITALS: Ht 177.8 cm; Wt 111.6 kg
[2021-01-02] MEDS ORDERED: JARDIANCE10 MG PO (08:42)
[2021-01-02] MEDS ORDERED: HYDROCHLOROTH12.5 M2 PO (08:42)
[2021-01-02 09:04] LABS: ABSOLUTE EOSINOPHILS 0.2 thou/uL (0.0-0.7); ABSOLUTE LYMPHOCYTES 1.9 thou/uL (0.8-5.3); ABSOLUTE MONOCYTES 0.7 thou/uL (0.0-1.2); ABSOLUTE NEUTROPHILS 3.1 thou/uL (1.6-8.1); BASOPHILS 0.2 %; EOSINOPHILS 4.1 %; HEMATOCRIT 47.3 % (42.0-52.0); HEMOGLOBIN 15.9 gm/dL (14.0-18.0); LYMPHOCYTES 32.7 %; MCH 31.2 pg (26.0-34.0); MCHC 33.5 g/dL (28.0-37.0); MCV 93.1 fL (80.0-100.0); MPV 10.1 fl. (7.2-11.1); NUCLEATED RBCS 0 /100WBC; PLATELET COUNT* 130 thou/uL (150-400); RBC 5.09 mil/uL (4.50-6.00); RDW-CV 14.5 % (10.5-14.5); WBC 5.9 thou/uL (4.0-11.0)
[2021-01-02 09:13] LABS: CALCIUM 9.3 mg/dL (8.5-10.1); POTASSIUM 4.3 mmol/L (3.5-5.1)
--- NOTE | 2021-01-02 10:47 | EKG ---
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 Raw Stock: LEO : 1955 Requested By: Vladimir Payton Order Number: [id number] MD: Roldan Viera Measurements Intervals [place] Rate: 66 P: 20 [place]: 144 QRS: 30 QRSD: 92 T: 65 QT: 426 QTc: 447 Interpretive Statements Sinus rhythm Multiple ventricular premature complexes Minimal ST elevation, anterior leads, early repolarization Compared to ECG 06/29/2020 04:46:18 Ventricular premature complex(es) now present ST (T wave) deviation now present Myocardial infarct finding no longer present Electronically Signed On 01-02-2021 10:47:08 CDT by Roldan Viera [email or web address] <ELECTRONICALLY SIGNED> By: Roldan Viera MD, FACC 01/02/21 1047 3 3 Roldan Viera MD, FACC /EPI
[2021-01-02] MEDS ORDERED: IMDUR 60 MG TAB60 M1 PO (12:37)
[2021-01-02 13:00] VITALS: BP 145/80
--- NOTE | 2021-01-02 14:24 | EKG ---
[place] [address] ELECTROCARDIOGRAM REPORT Name: LORENA GOULD Room: [facility]#: [id number] Admission: 01/02/21 Attend Phys: Discharge: 01/02/21 Date of : 51 Date of Service: 01/02/21 1130 Report #: [id number] THIS REPORT FOR: //name// [facility] ED Test Date: 2021-01-02 Test Time: 11:30:13 Pat Name: LORENA GOULD Department: Room: Gender: Greeting Card Editor: ALMITA : 1955 Requested By: Vladimir Payton Order Number: [id number] MD: Josiah Solares Measurements Intervals [place] Rate: 61 P: 67 MT: 163 QRS: 34 QRSD: 93 T: 76 QT: 456 QTc: 460 Interpretive Statements Sinus rhythm Multiple ventricular premature complexes Low voltage, extremity leads Minimal ST elevation, anterior leads Baseline wander in lead(s) II,III,aVF Compared to ECG 01/02/2021 08:34 ST (T wave) deviation still present Electronically Signed On 01-02-2021 14:23:30 CDT by Josiah Solares [email or web address] <ELECTRONICALLY SIGNED> By: Josiah Solares MD, FACC 01/02/21 1423 1130 1130 Josiah Solares MD, [facility] /EPI
--- NOTE | 2021-01-04 17:11 | CON ---
[address] [address] CONSULTATION Name: GOULD,LORENA Garg [id number] Admission: 01/02/21 Attend Phys: Discharge: 01/02/21 Date of : 51 Report #: [id number] THIS REPORT FOR: cc: Physician not on staff Physician not on staff Roldan Viera MD [facility] ~ cc: Michael Godoy MD [facility] DATE OF CONSULTATION: 01/02/2021 CARDIOLOGY CONSULTATION INDICATION: Chest pain. HISTORY OF PRESENT ILLNESS: The patient is a very pleasant 65-year-old gentleman with a history of coronary artery disease. He has had percutaneous coronary intervention on multiple occasions in the past. Most recently in June of this year, he had a percutaneous coronary intervention to the proximal and distal left anterior descending coronary artery and posterior descending branch of the circumflex. The patient has preserved left ventricular systolic function. The patient presented to the Emergency Room this morning with complaints of midsternal chest discomfort radiating to the right arm, lasting approximately 10 minutes at a time, starting at 6:00 this morning. He took an extra aspirin this morning. He did not take any nitroglycerin. The patient reports the pain radiated to the right arm and was associated with shortness of breath. He describes this as similar to the pain he has had with previous episodes of angina. The pain waxed and waned this morning. The patient presented to the Emergency Room for further evaluation. EKG shows a sinus rhythm/sinus bradycardia with unifocal PVC, without significant ST or T-wave changes. High sensitivity troponins were unremarkable x 2 sets. The patient was pain free at the time of my discussion. He had not had prolonged pain. He was without other cardiac complaint at this time. PAST MEDICAL HISTORY: 1. Coronary artery disease with previous intervention. He has had stenting previously to the left main and to the LAD as well as proximal LAD and distal LAD. He has had angioplasty and stenting of the takeoff of the circumflex. He has had stenting to the mid and distal circumflex as well. He remains on dual antiplatelet therapy at this time. 3. Hypertension. 4. Hyperlipidemia. 5. Type 2 diabetes mellitus. 6[place] [address] CONSULTATION Name: LUIS FERNANDOLORENA Forest [facility] [id number] Admission: 01/02/21 Attend Phys: Discharge: 01/02/21 Date of : 51 Report #: [id number] 7. Rheumatoid arthritis. SOCIAL HISTORY: The patient is . He is a nonsmoker. REVIEW OF SYSTEMS: Positive for mild dyspnea on exertion without orthopnea or paroxysmal nocturnal dyspnea. He has chest discomfort as outlined above. He reports joint pains. He is without other complaint on 14-point review of systems. HOME MEDICATIONS: Effient 10 mg daily, aspirin 81 mg daily, Humira 40 mg subcutaneous twice q. 2 weeks, atorvastatin 40 mg at bedtime, carvedilol 6.25 mg b.i.d., Trulicity 0.75 mg daily, Jardiance 10 mg daily, hydrochlorothiazide 12.5 mg daily, insulin subcutaneously as directed, Levemir 40 units daily, losartan 25 mg daily, metformin 500 mg b.i.d., Nitrostat 0.4 mg sublingual p.r.n., Flomax 0.4 mg daily. ALLERGIES: None documented. PHYSICAL EXAMINATION: VITAL SIGNS: Blood pressure 148/85, pulse 64 and regular. GENERAL: This is a pleasant gentleman who is in no distress. Mood and affect appropriate. HEENT: Head is normocephalic, atraumatic. Extraocular muscles intact. Mucous membranes moist. NECK: Shows no jugular venous distention. I do not appreciate carotid bruit. CHEST: Reveals clear lung madrigal. CARDIAC: Reveals a regular rhythm with normal S1 and S2. I do not appreciate a gallop or murmur. ABDOMEN: Reveals normal bowel sounds. The abdomen is soft and nontender. EXTREMITIES: Shows no edema. Peripheral pulses palpable. SKIN: Dry. DIAGNOSTIC DATA: A 12-lead EKG shows sinus rhythm/sinus bradycardia without significant ST or T-wave abnormality. There were occasional unifocal premature ventricular contractions. LABORATORY DATA: Reviewed. Ultra high sensitive troponins were 12 and 12 sequentially. IMPRESSION AND RECOMMENDATIONS: 1. Progressive angina. The patient is presently stable. He has ruled out for myocardial infarction. EKG is stable. Pain has resolved. He received extra aspirin in the Emergency Room. He has not required further therapy at this time. Plan to start isosorbide mononitrate 60 mg daily. We will arrange [address] [address] CONSULTATION Name: LORENA GOULD [id number] Admission: 01/02/21 Attend Phys: Discharge: 01/02/21 Date of : 51 Report #: [id number] followup in the Cardiology office next week. 2. Hypertension, presently stable. Continue current antihypertensive regimen outlined above. 3. Dyslipidemia. Continue atorvastatin at current dose. 4. Type 2 diabetes mellitus, presently stable. The patient is on regimen of oral medications and insulin. At this point in time, the patient appears stable for discharge from the Emergency Room. We will arrange followup with the Cardiology office. <ELECTRONICALLY SIGNED> By: Roldan Viera MD, FACC 01/04/21 1711 1202 11Roldan Viera MD, FACC /nt
== END 2021-01-02 12:55 | disposition home or self-care (01) ==
LOC: M.ERS 08:29
PROVIDERS: Emergency Medicine
DX: I25.10 Atherosclerotic heart disease of native coronary artery without angina pectoris (principal); Z20.822 Contact with and (suspected) exposure to COVID-19; K21.9 Gastro-esophageal reflux disease without esophagitis; E11.9 Type 2 diabetes mellitus without complications; R07.89 Other chest pain; I10 Essential (primary) hypertension; M19.90 Unspecified osteoarthritis, unspecified site; E78.00 Pure hypercholesterolemia, unspecified; Z79.82 Long term (current) use of aspirin; Z79.4 Long term (current) use of insulin; Z79.899 Other long term (current) drug therapy

== ENCOUNTER 2021-01-10 07:48 | Observation (INO) | payer MEDICARE ==
[2021-01-10] VITALS (11 sets, daily range): BP systolic 103–158; BP diastolic 42–112
[~2021-01-10] VITALS: Ht 177.8 cm; Wt 111.6 kg
--- NOTE | ~2021-01-10 | D ---
[address] [address] DISCHARGE SUMMARY Name: LUIS FERNANDOLORENA Garg Room: [address] Evette Chaudhary#: [id number] Admission: 01/10/21 Attend Phys: Michael Godoy MD, Discharge: 01/11/21 Date of : 51 Report #: [id number] THIS REPORT FOR: cc: Physician not on staff Physician not on staff Michael Godoy MD [facility] ~ DATE OF DISCHARGE: 01/11/2021 The patient discharged from room 219 on 01/11/2021. FINAL DISCHARGE DIAGNOSES: 1. Unstable angina. 2. Coronary artery disease. 3. Status post percutaneous coronary intervention to the circumflex. 4. Hypertension. 5. Type 2 diabetes. 6. Hyperlipidemia. 7. Exogenous obesity. PROCEDURES: On 01/10/2021 -- left heart catheterization, left ventriculography, selective coronary arteriography, percutaneous coronary intervention with deployment of drug-eluting stents in the prominent posterior descending branch of the circumflex as well as the ostial proximal circumflex. HOSPITAL COURSE: The patient is a very pleasant 66-year-old [place]an male with underlying hypertension, diabetes, and hyperlipidemia. He has complex coronary artery disease, status post multiple prior PCIs. Recently, he has noted increasing episodes of chest discomfort with concomitant dyspnea with minimal ambulation. It has worsened and he presented to the ER on 01/10 with a pattern of unstable angina. In this context, I recommend to proceed with cardiac catheterization, which was undertaken on 01/10/2021. That study revealed severe coronary artery disease, characterized by the followin. A 30%-40% distal left main coronary narrowing. 2. A 30% proximal -- mid LAD narrowing with widely patent proximal and mid LAD stents. 3. Prominent though nondominant circumflex with 80% ostial narrowing and 95% stenosis of the proximal portion of the prominent high takeoff posterior descending branch of the circumflex. 4. Total occlusion of the right coronary artery distally. LV function was normal and the estimated ejection fraction of 60%. No segmental [place] [address] DISCHARGE SUMMARY Name: LORENA GOULD [address]: [address]#: [id number] Admission: 01/10/21 Attend Phys: Michael Godoy MD, Discharge: 01/11/21 Date of : 51 Report #: [id number] Given these findings, I elected to perform PCI and I deployed one 2.0 x 30 mm [place] drug-eluting stent in the posterior descending branch of the circumflex and 3 drug-eluting stents in the ostial proximal circumflex with 0% proximal and 10% posterior descending branch narrowings following final stent deployment. High sensitivity troponin jey minimally to 98 with a CK-MB within the normal reference range of 1.9. Additional labs on 01/11 revealed sodium 138, potassium 3.5, BUN 14, creatinine 1.0, and glucose 103. Hemoglobin 14.3, white blood cell count 6300 with platelets of 105,000. The patient ambulated in the hallways without difficulty with good hemostasis at the right femoral site of catheterization. He was discharged to home on the following medications: Carvedilol 6.25 mg b.i.d., p.r.n. sublingual nitroglycerin, metformin 500 mg b.i.d. to be resumed on 01/12/2021, losartan 25 mg daily, aspirin 81 mg daily, Levemir insulin 40 units subcutaneously daily, Humira 40 mg subcutaneous every 2 weeks, NovoLog insulin 100 units subcutaneously daily, atorvastatin 40 mg at bedtime, prasugrel 10 mg daily, Trulicity 0.75 mg daily, tamsulosin 0.4 mg daily, Jardiance 10 mg daily, hydrochlorothiazide 12.5 mg daily, and Imdur 60 mg daily. I will plan to see the patient next week in our office for followup. Therefore, the patient is discharged home in stable condition on the aforementioned medications with followup next week with myself. By: 0856 0934Michael Godoy MD, [facility] /nt
[~2021-01-10 07:48] MED LIST changes: +HYDROCHLOROTH12.5 M2 PO; +IMDUR 60 MG TAB60 M1 PO; +JARDIANCE10 MG PO
[2021-01-10 08:11] LABS: ABSOLUTE BASOPHILS 0.1 thou/uL (0.0-0.2); ABSOLUTE EOSINOPHILS 0.2 thou/uL (0.0-0.7); ABSOLUTE LYMPHOCYTES 1.8 thou/uL (0.8-5.3); ABSOLUTE MONOCYTES 0.5 thou/uL (0.0-1.2); ABSOLUTE NEUTROPHILS 2.7 thou/uL (1.6-8.1); BASOPHILS 1.8 %; EOSINOPHILS 3.5 %; HEMATOCRIT 46.6 % (42.0-52.0); HEMOGLOBIN 15.7 gm/dL (14.0-18.0); LYMPHOCYTES 33.9 %; MCH 31.4 pg (26.0-34.0); MCHC 33.7 g/dL (28.0-37.0); MCV 93.1 fL (80.0-100.0); MONOCYTES 9.3 %; MPV 10.3 fl. (7.2-11.1); NUCLEATED RBCS 0 /100WBC; PLATELET COUNT* 123 thou/uL (150-400); POLYS 51.5 %; RDW-CV 14.2 % (10.5-14.5); WBC 5.3 thou/uL (4.0-11.0)
[2021-01-10 08:57] LABS: CALCIUM 9.3 mg/dL (8.5-10.1); POTASSIUM 3.9 mmol/L (3.5-5.1)
[2021-01-10 09:11] LABS: ALBUMIN 4.3 g/dL (3.4-5.0); CK-MB MASS 2.2 ng/mL (<0.5-3.6); MAGNESIUM 2.2 mg/dL (1.8-2.4); TOTAL BILIRUBIN 0.7 mg/dL (<0.1-1.0); TOTAL PROTEIN 8.5 g/dL (6.4-8.2)
--- NOTE | 2021-01-10 10:40 | H ---
[place] [address] HISTORY AND PHYSICAL Name: LORENA GOULD Forest Room: [facility]#: [id number] Admission: 01/10/21 Attend Phys: Discharge: Date of : 53 Report #: [id number] THIS REPORT FOR: cc: Physician not on staff Physician not on staff Michael Godoy MD [facility] ~ ADMIT DATE: 01/10/2021 HISTORY OF PRESENT ILLNESS: The patient is a very pleasant 65-year-old male with complex coronary artery disease, status post multiple PCIs, most recently to the LAD and circumflex in June of this year. At that time, I performed PCI of the proximal and mid LAD as well as the proximal portion of the posterior descending branch of the dominant circumflex. He presented on 01/02 to the [facility] with chest pain which gradually remitted. He was discharged home on long-acting mononitrate in form of Imdur. He has continued to experience chest discomfort with minimal activity such as walking about the house. There is also accompanying shortness of breath and generalized fatigue. This is similar to his prior ischemic syndrome. Episodes have become more frequent and severe. Risk factors for coronary artery disease include diabetes, hyperlipidemia and weight excess. MEDICATIONS: Include Humira every 14 days for his rheumatoid arthritis, aspirin 81 mg daily, atorvastatin 40 mg daily, carvedilol 25 mg b.i.d., Trulicity 0.75 mg under the skin every 7 days, Jardiance 10 mg daily, famotidine 40 mg 2 times a day, hydrochlorothiazide 12.5 mg daily, NovoLog insulin in varying doses, Levemir insulin 20 units subcutaneously daily, losartan 25 mg daily, metformin 1000 mg b.i.d., p.r.n. sublingual nitroglycerin. PAST MEDICAL HISTORY: Remarkable for hypertension, hyperlipidemia, diabetes, and weight excess. SOCIAL HISTORY: He is a nonsmoker. He is . REVIEW OF SYSTEMS: Remarkable for the following: CARDIOVASCULAR: He notes chest discomfort and dyspnea with exertion. ENDOCRINE: He has difficult to control diabetes. GENERAL: There is a modest chronic weight excess. UROLOGIC: He has BPH. Remainder of the 13-point review [place] [address] HISTORY AND PHYSICAL Name: LORENA GOULD Room: [facility]#: [id number] Admission: 01/10/21 Attend Phys: Discharge: Date of : 51 Report #: [id number] PHYSICAL EXAMINATION: GENERAL: Reveals a moderately overweight, middle-aged Samoan male. VITAL SIGNS: Blood pressure is 115/70, pulse rate is 67, respirations are 18 per minute. Jugular venous pressure is normal. CHEST: Clear. CARDIAC: Reveals normal first and second heart sounds without murmurs or gallops. ABDOMEN: Moderately obese. EXTREMITIES: Revealed intact femoral, pedal and radial pulses. No edema is noted. LABORATORY DATA: EKGs revealed a sinus rhythm, nonspecific ST-T abnormalities, possible LVH. IMPRESSION: 1. Unstable angina. 2. Coronary artery disease status post multiple prior PCIs. 3. Hypertension. 4. Diabetes. 5. Hyperlipidemia. 6. Obesity. RECOMMENDATIONS: Given the recent clinical scenario, compatible with unstable angina, I would recommend proceeding with a cardiac catheterization to define the magnitude of current coronary disease and prospects for subsequent therapeutic modification. Critical care time is 45 minutes. <ELECTRONICALLY SIGNED> By: Michael Godoy MD, [facility] 01/10/21 1040 0916 [id number] Godoy MD, [facility] /nt
--- NOTE | 2021-01-10 10:50 | EKG ---
[place] [address] ELECTROCARDIOGRAM REPORT Name: LORENA GOULD Room: [facility]#: [id number] Admission: 01/10/21 Attend Phys: Discharge: Date of : 51 Date of Service: 01/10/21 0752 Report #: [id number] THIS REPORT FOR: //name// [facility] ED Test Date: 2021-01-10 Test Time: 07:52:35 Pat Name: LORENA GOULD Department: Room: Gender: Principal Technologist: : 1955 Requested By: Ross Bentley Order Number: [id number] MD: Michael Godoy Measurements Intervals [place] Rate: 129 P: OR: QRS: 17 QRSD: 85 T: 46 QT: 425 QTc: 623 Interpretive Statements Sinus rhythm Occasional isolated PVCs Inferior infarct, old Prolonged QT interval Compared to ECG 01/02/2021 11:30:13 Myocardial infarct finding now present Prolonged QT interval now present ST (T wave) deviation no longer present Electronically Signed On 01-10-2021 10:50:36 CDT by Michael Godoy [email or web address] <ELECTRONICALLY SIGNED> By: Michael Godoy MD, [facility] 01/10/21 1050 0752 [id number] Michael Godoy MD, [facility] /EPI
--- NOTE | 2021-01-10 17:00 | NUR ---
ADMIT FROM ARCHEOLOGY FACULTY MEMBER VIA CART. ADMIMSSION ASSESSMENT COMPLETE, DEFER TO COMPUTER CHARTING. HYDRO TECHNICIAN TRACKING SR TO SB. ALERT ORIENTED, PATIENT SPEAKING GREEK, ONLY KNOWING FEW ESTONIAN WORDS - DAUGHTER AT BEDSIDE TO ASSIST WITH TRANSLATING FOR PATIENT. DENIES CHEST PAIN, DIZZINESS - DRESSING CDI TO RIGHT GROIN - AREA SOFT TO PALPATE, NO HEMATOMA NOTED. EDUCATED ON KEEPING RIGHT LEG STRAIGHT, HOLDING PRESSURE TO GROIN WHEN COUGHING OR SNEEZING - POST CATH ORDERS, VERBALIZED UNDERSTANDING. WILL MONITOR.
--- NOTE | 2021-01-10 18:30 | NUR ---
CORRECTIONAL COOK TRACKING WITH NO CHANGE IN RHYTHM. DRESSING TO RIGHT GROIN NOTED TO HAVE SMALL AREA OF SCANT DRIED BLOOD/SHADOW ON DRESSING AREA OUTLINED, SITE CONTINUES TO SOFT TO PALPATE. WILL MONITOR.
[2021-01-11] VITALS: BP 161/62
[2021-01-11 04:00] VITALS: BP 128/71
[2021-01-11 04:30] LABS: HEMOGLOBIN 14.3 gm/dL (14.0-18.0); MCH 31.6 pg (26.0-34.0); MCHC 33.9 g/dL (28.0-37.0); MPV 10.7 fl. (7.2-11.1); RBC 4.51 mil/uL (4.50-6.00); RDW-CV 14.2 % (10.5-14.5); WBC 6.3 thou/uL (4.0-11.0)
[2021-01-11 04:56] LABS: ALBUMIN 3.6 g/dL (3.4-5.0); ALKALINE PHOSPHATASE 59 U/L (46-116); ANION GAP 9 mmol/L (7-16); BUN 14 mg/dL (7-18); CALCIUM 8.4 mg/dL (8.5-10.1); CHLORIDE 100 mmol/L (98-107); CHOLESTEROL 93 mg/dL (<200); CK-MB MASS 1.9 ng/mL (<0.5-3.6); CO2 29 mmol/L (21-32); GLUCOSE 106 mg/dL (70-99); HDL CHOLESTEROL 39 mg/dL (>40); LDL CHOLESTEROL 34 mg/dL (<100); POTASSIUM 3.5 mmol/L (3.5-5.1); SERUM ASSESSMENT CLEAR; SGOT 19 U/L (15-37); SGPT 23 U/L (30-65); SODIUM 138 mmol/L (136-145); TC:HDL 2.4 Ratio (Not establshd); TOTAL BILIRUBIN 0.8 mg/dL (<0.1-1.0); TOTAL PROTEIN 7.3 g/dL (6.4-8.2); TRIGLYCERIDE 102 mg/dL (<150); VLDL 20 mg/dL (<40)
[2021-01-11 08:00] VITALS: BP 126/77
[2021-01-11 10:17] VITALS: BP 124/63
--- NOTE | 2021-01-11 10:51 | CARD ---
[address] [address] CARDIAC CATH REPORT Name: LORENA GOULD Room: [address] Evette Chaudhary#: [id number] Admission: 01/10/21 Attend Phys: Michael Godoy MD, Discharge: Date of : 51 Report #: [id number] THIS REPORT FOR: cc: Physician not on staff Physician not on staff Michael Godoy MD [facility] ~ APPROVED REPORT Study performed: 01/10/2021 13:07:58 Patient Details Patient Status: ED Room #: The patient is a 66 year-old male Event Personnel Michael Godoy Porcelain Turner, Jony Burdick RN RN, Tonny Rodriguez RTR Scrub, Meghna Gilbert RTR Monitor Procedures Performed Art Access - R femoral artery Left Heart Cath w/or w/o Coronaries CHU Place w/wo Plasty Single CIRC CHU Place w/wo Plasty Addl BR LPDA Hemostasis w/ Mynx Indication Unstable angina Risk Factors Dysplipidemia Obesity, Hypercholesterolemia, Hypertension, Diabetes Previous Procedures/Diagnoses Previous PCI Admission/Lab Medications/Medications given during procedure Lidocaine Subcut 14 ml, Oxygen Nasal cannula 2 l per min, 0.9% Sodium Chloride IV 75 ml per hr, 0.9% Sodium Chloride IV 125 ml per hr, Angiomax IV 16.5 ml, Angiomax Drip IV 39.06 ml per hr, Nitroglycerin IC 150 mcg, 0.9% Sodium Chloride IV 200 ml per hr, Aspirin PO 82 mg, Effient PO 30 mg Procedure Narrative The patient was brought emergently to the Cardiac Catheterization Laboratory and was prepped and draped in a sterile manner. The right femoral was infiltrated with 2% [place] [address] CARDIAC CATH REPORT Name: LORENA GOULD Room: [address]#: [id number] Admission: 01/10/21 Attend Phys: Michael Godoy MD, Discharge: Date of : 51 Report #: [id number] conscious sedation was used throughout procedure with appropriate monitoring and was performed in the presence of a registered nurse who was an independent trained observer other than the physician performing the procedure. A 6fr Ultimum Sheath sheath was inserted into the right femoral artery. Coronary angiography was performed using coronary diagnostic catheters. The right coronary system was accessed and visualized with a Diagnostic 6 Fr JR 4 catheter. The left coronary system was accessed and visualized with a Diagnostic 6 Fr JL 4 catheter. The left ventricle was accessed and visualized with a Diagnostic 6 Fr Pigtail catheter. Left ventricular/Aortic Valve gradient assessed via catheter pullback. Left ventriculogram was performed in WARREN projection. Pre-demployment femoral angiogram was performed . Closure device was deployed with a Fr MynxGrip 6/7F. The patient tolerated the procedure well and there were no complications associated with the procedure. A hematoma occurred. Intraoperative Conscious Sedation Sedation start time: 13:34 Case end Time: 15:20 Fentanyl 25 mcg Versed 1 mg Fluoro Time: 35.4 minutes Dose: DAP [id number] cGycm2 5552 mGy Contrast Type and Amount: Visipaque 380 ml Coronary Angiography The patient's coronary anatomy is co- dominant. Diagnostic Cath Left Main 30% mid vessel narrowing LAD 30% mid vessel narrowing with widely patent proximal and mid LAD stents Circumflex 80% ostial stenosis with 95% stenosis of the proximal portion of the high takeoff posterior descending branch of the codominant circumflex; there was PIYUSH II flow to the distal posterior descending branch; there was 100% distal circumflex occlusion Right Coronary 50% tubular proximalmid vessel narrowing with 100% distal occlusion Left Ventriculography The left ventricle is normal in size with normal contractility. The left ventricular ejection fraction is estimated to be 60%. Left ventricular wall motion abnormalities are not present. There [place] [address] CARDIAC CATH REPORT Name: LORENA GOULD Room: [address]#: [id number] Admission: 01/10/21 Attend Phys: Michael Godoy MD, Discharge: Date of : 51 Report #: [id number] Hemodynamics The aortic pressure is 107/50 mmHg with a mean of 76 mmHg. The left ventricular pressure is 119/8 mmHg with a mean of mmHg. The left ventricular end diastolic pressure is 14 mmHg. There was no gradient across the aortic valve upon pullback. PCI Technique Lesion Anticoagulation was achieved with Angiomax Drip. Patient was preloaded with Angiomax IV 16.5 ml. Percutaneous coronary intervention was performed on the Proximal portion of the left posteriorl descending artery. The lesion stenosis prior to intervention was 95% with PIYUSH 2 flow. A 6F XB LAD 3.5 Guide Catheter was used to engage the left ostium. A IG: ProwaterFlex 180CM Interventional Guidewire was used to cross the lesion. BALLOON DILATION A Balloon catheter Mini Trek RX 1.2X8 was inserted and inflated up to 16.00atm for 5seconds. Additional Inflation: 18.00atm for 7seconds. A balloon catheter Mini Trek RX 2.0 X 8 was inserted and inflated up to 8 ALMA for 11 seconds and 10 ALMA for 11 seconds. A balloon catheter Mini Trek RX 2.0 x 12 was inserted and inflated up to 6 ALMA for 10 seconds and 10 ALMA for 10 seconds. STENT DEPLOYMENT A drug-eluting stent Oleg RX Stent 2.0X30mm was inserted and inflated up to 8.00atm for 6seconds. Additional Inflation: 10.00atm for 6seconds. Additional Inflation: 12.00atm for 8seconds. Final angiography reveals 10 % stenosis with PIYUSH 3 flow. COMMENTS The PCI was technically complex by virtue of severe diffuse disease involving the takeoff of the posterior descending branch requiring complex wiring. There was significant diffuse disease throughout the circumflex requiring significant lesion preparation and multiple wires including a grady wire for stent positioning and deployment. PCI Technique Lesion 2 Percutaneous Coronary Intervention was performed on the proximal circumflex artery segment. Patient was preloaded with Angiomax IV 16.5 ml. The lesion stenosis prior to intervention was 80% with PIYUSH 3 flow. A 6F XB LAD 3.5 Guide Catheter was used to engage the left ostium. A IG: ProwaterFlex 180CM Interventional [place] [address] CARDIAC CATH REPORT Name: LORENA GOULD Room: [address] Evette Chaudhary#: [id number] Admission: 01/10/21 Attend Phys: Michael Godoy MD, Discharge: Date of : 51 Report #: [id number] cross the lesion. Balloon Dilation A Balloon catheter Trek RX 2.25 X 8 was inserted and inflated up to 12.00atm for 9seconds. Additional Inflation: 12.00atm for 4seconds. A balloon catheter [place] Trek RX 2.5 x 12 was inserted and inflated up to 12 ALMA for 9 seconds and 14 ALMA for 9 seconds. Stent Deployment A drug-eluting stent Oleg RX Stent 2.0X12mm was inserted and inflated up to 14.00atm for 10seconds. Additional Inflation: 18.00atm for 7seconds. Additional Inflation: 20.00atm for 7seconds. 2.25 x 8 Keller and 2.5 x 8 Oleg also deployed in the ostial proximal circumflex, each to 14 alma Post Stent Deployment Balloon Dilation A Balloon catheter Trek RX 2.5 X 8 was inserted and inflated up to 14.00atm for 12seconds. Final angiography reveals 0 % stenosis with PIYUSH 3 flow. Conclusion 1. Severe multivessel coronary artery disease characterized by the following: A 30% mid left main coronary narrowing B 30% narrowing in the midportion of the prominent LAD with widely patent proximal and mid vessel stents C prominent though codominant circumflex with 80% ostial narrowing and 95% stenosis of the ostial proximal portion of the posterior descending branch of the codominant circumflex; there was 100% distal circumflex occlusion D codominant right coronary artery with 50% tubular proximalmid vessel narrowing and 100% distal occlusion 2. Left ventricular systolic function, estimated ejection fraction being 60% 3. Normal left-sided hemodynamic study 4. Successful PCI with deployment of a drug[place] [address] CARDIAC CATH REPORT Name: LORENA GOULD Room: [address] Evette Chaudhary#: [id number] Admission: 01/10/21 Attend Phys: Michael Godoy MD, Discharge: Date of : 51 Report #: [id number] site of 95% ostial - proximal stenosis in the posterior descending branch of the codominant circumflex with 10% residual narrowing and PIYUSH-3 flow to the distal vessel 5. Successful PCI with deployment of sequential drug-eluting stents at the site of 80% ostial proximal circumflex stenosis with 0% residual narrowing and PIYUSH-3 flow to the distal vessel Recommendations Cardiac Risk Reduction Program Aggressive Medical Therapy Medications Administered Aspirin (any) Prasugrel Diagnostic Cath Approved by: Michael Godoy MD Date/Time: 01/11/2021 10:44:09 <ELECTRONICALLY SIGNED> By: Michael Godoy MD, [facility] 01/11/21 1050 1050 1050miguel Godoy MD, FACC /INF
[2021-01-11 11:10] VITALS: BP 124/63
--- NOTE | 2021-01-11 11:32 | NUR ---
ASSUMED CARE OF PT AT 0730. PT SITTING UP IN THE CHAIR WAITING FOR BREAKFAST. A&0X4, DENIES ANY PAIN OR SHORTNESS OF BREATH AT THIS TIME. TRACING SR ON THE PIT CLERK. ON RA SAT UPPER 90'S. PT UP SBA TO BATHROOM. RIGHT GROIN CATH SITE C/D/I WITH NO HEMATOMA NOTED. PT GOAL FOR TODAY IS DISCHARGE PLANNING TO HOME WHEN CLEARED BY CARDIOLOGY. AM ASSESSMENT CHARTED. MEDICATIONS PER MAR. PT REPOSITIONS SELF. HOURLY ROUNDING OBSERVED. BED IN LOW POSITION. CALL LIGHT WITHIN REACH. WILL CONTINUE PLAN OF CARE.
--- NOTE | 2021-01-11 12:19 | NUR ---
CARDIOLOGY HERE TO SEE PT. OK FOR DISCHARGE. DISCHARGE ORDERS RECEIVED. DISCHARGE INSTRUCTIONS, CARE NOTES AND FOLLOW UP APPTS GIVEN TO PT. PT AND PT FAMILY AT BEDSIDE COMMUNICATES UNDERSTANDING OF DISCHARGE TEACHING. IV AND CONSULTING BUSINESS DEVELOPER REMOVED. PT DISCHARGED WITH ALL BELONGINGS AND PAPERWORK VIA WHEELCHAIR WITH NURSING STAFF TO FAMILY OWN PERSONAL VEHICLE.
--- NOTE | 2021-01-11 12:24 | EKG ---
[place] [address] ELECTROCARDIOGRAM REPORT Name: LORENA GOULD Room: [address]#: [id number] Admission: 01/10/21 Attend Phys: Marlen Patel Discharge: 01/11/21 Date of : 51 Date of Service: 01/11/21 0938 Report #: [id number] THIS REPORT FOR: //name// [facility] Test Date: 2021-01-11 Test Time: 09:38:30 Pat Name: LORENA GOULD Department: Room: [facility] Gender: M Litigation Support Analyst: : 1955 Requested By: Michael Godoy Order Number: [id number] Reading MD: Josiah Solares Measurements Intervals [place] Rate: 75 P: 58 VT: 162 QRS: 22 QRSD: 88 T: 43 QT: 402 QTc: 449 Interpretive Statements Sinus rhythm Borderline low voltage, extremity leads Consider inferior infarct Compared to ECG 01/10/2021 07:52:35 Ventricular premature complex(es) no longer present Prolonged QT interval no longer present Myocardial infarct finding still present Electronically Signed On 01-11-2021 12:24:29 CDT by Josiah Solares [email or web address] <ELECTRONICALLY SIGNED> By: Josiah Solares MD, [facility] 01/11/21 1224 7 7 Josiah Solares MD, [facility] /EPI
== END 2021-01-11 12:21 | disposition home or self-care (01) ==
LOC: M.ERS 07:48 → M.CL 12:58 → M.TBA-CV 12:58 → M.2W 13:38 → M.TBA-CV 13:38 → M.2W 16:18
PROVIDERS: Family Medicine; ADMIT Internal Medicine; ATTEND Internal Medicine
DX: I25.110 Atherosclerotic heart disease of native coronary artery with unstable angina pectoris (principal); Z20.822 Contact with and (suspected) exposure to COVID-19; I10 Essential (primary) hypertension; E11.9 Type 2 diabetes mellitus without complications; E78.5 Hyperlipidemia, unspecified; E66.09 Other obesity due to excess calories; M19.90 Unspecified osteoarthritis, unspecified site; Z79.4 Long term (current) use of insulin; Z79.82 Long term (current) use of aspirin; Z79.899 Other long term (current) drug therapy